=== PATIENT | male | born 1990 | race Caucasian/White ===

== ENCOUNTER → 2019-05-04 17:06 | Outpatient (CLI) | payer OTHER, SELFPAY ==
[2019-05-04 18:08] LABS: Creatine Kinase 91 U/L (55-170)
[2019-05-04 18:21] LABS: Troponin I < 0.012 ng/mL (0.01-0.034)
== END ==
PROVIDERS: PCP Family Medicine; Visit Provider Family Medicine
DX: I48.91 Unspecified atrial fibrillation (principal); R07.9 Chest pain, unspecified
CPT/HCPCS: 36415; 82550; 84484

== ENCOUNTER → 2019-05-21 15:50 | Outpatient (CLI) | payer OTHER, MEDICAID, SELFPAY ==
--- NOTE | 2019-05-21 15:52 | DI.ECHO.S_ITS ---
[place] +---------+ [facility] +---------+ : : [address] : [address] : : : : [id number] : : : : Phone: [phone] Echocardiogram Report + + :Name: TYRESE CAMARILLO Study Date: 05/21/2019 Height: 76 in : :[facility] Weight: 270 lb : : Gender: Male BSA: 2.5 m2 : :: 1990 Age: 28 yrs BP: 128/82 mmHg: :Reason For Study: CHEST PAIN : : Performed By: [facility] Staff : :Referring: UNSPECIFIED : + + Interpretation Summary Borderline concentric left ventricular hypertrophy with ejection fraction 55- 60%. Normal right ventricle and both atria. No valvular abnormality. The aortic root is borderline dilated. Procedure: A two-dimensional transthoracic echocardiogram with color flow and Doppler was performed. The study quality was technically good. There is no prior echocardiogram noted for this patient. The patient was in normal sinus rhythm during the exam. Left Ventricle: The left ventricle is normal in size. There is borderline concentric left ventricular hypertrophy. Left ventricular systolic function is normal. The ejection fraction is estimated to be 55-60%. Left ventricular wall motion is normal. Diastolic parameters suggest probable normal left ventricular diastolic function and normal filling pressures. Right Ventricle: The right ventricle is normal in size and function. Atria: The left atrial size is normal. Right atrial size is normal. The interatrial septum is intact with no evidence for an atrial septal defect. Mitral Valve: The mitral valve is normal in structure and function. There is no mitral regurgitation noted. Aortic Valve: The aortic valve is trileaflet. The aortic valve opens well. No aortic regurgitation is present. Tricuspid Valve: The tricuspid valve is normal in structure and function. There is trace tricuspid regurgitation. Pulmonary artery pressures cannot be estimated because of the lack of a measurable TR jet velocity. Pulmonic Valve: The pulmonic valve is normal in structure and function. There is no pulmonic valvular regurgitation. Great Vessels: The aortic root is borderline dilated. The ascending aorta could not be visualized. The pulmonary artery is normal size. The inferior vena cava was not visualized. Pericardium/ Pleura There is no pericardial effusion. There is no pleural effusion. MMode/2D Measurements & Calculations LVIDd: 5.4 cm LVOT diam: 2.5 cm LVIDs: 3.7 cm Ao root diam: 3.7 cm FS: 32.4 % EPSS: 0.57 cm IVSd: 1.2 cm LVPWd: 1.2 cm LV jeffrey. diameter/BSA (cm/m^2): 2.2 LV sys. diameter/BSA (cm/m^2): 1.5 LA A2 area: 18.1 cm2 RA long axis: 5.2 cm LA A4 area: 18.7 cm2 RA area: 16.4 cm2 LA length (vol): 5.3 cm RA vol: 44.4 ml LA vol: 54.1 ml RA : 17.6 ml/m2 LA vol index: 21.5 ml/m2 TAPSE: 2.0 cm Doppler Measurements & Calculations Ao V2 max: 94.4 cm/sec LVOT Max Sudarshan: 80.9 cm/sec Ao V2 mean: 71.6 cm/sec LV V1 max P.6 mmHg Ao max P.6 mmHg LV V1 VTI: 16.4 cm Ao mean P.2 mmHg NY(I,D): 4.1 cm2 Ao V2 VTI: 20.6 cm NY(V,D): 4.4 cm2 sev ratio: 0.80 NY indexed to BSA (cm^2/m^2): 1.6 MV E max sudarshan: 64.1 cm/sec PA V2 max: 81.0 cm/sec MV A max sudarshan: 43.5 cm/sec PA V2 mean: 58.2 cm/sec MV E/A: 1.5 PA mean P.5 mmHg Med Peak E' Sudarshan: 8.8 cm/sec PA Accel Time: 0.12 sec E/E' med: 7.3 Lat Peak E' Sudarshan: 14.2 cm/sec E/E' lat: 4.5 E/e' average: 5.9 MV dec time: 0.24 sec SV(LVOT): 83.7 ml Electronically signed by: Ross Kraus on Reading Physician:05/21/2019 05:11 PM
== END ==
PROVIDERS: PCP Family Medicine; Visit Provider Family Medicine
DX: R07.9 Chest pain, unspecified (principal); I48.91 Unspecified atrial fibrillation
CPT/HCPCS: C8929; Q9957

== ENCOUNTER 2019-06-12 15:48 | Emergency (ER) | payer OTHER, MEDICAID, SELFPAY ==
[2019-06-12 15:57] VITALS: BP 130/79; PULSE 62; RESP 14; TEMP 36.6; O2SAT 98
--- NOTE | 2019-06-12 17:58 | ED_ITS ---
HPI - Ear Problem <ZACHARY Cabrera - Last Filed: 06/12/19 18:01> General Chief complaint: Ear Stated complaint: pain in right ear Time Seen by Provider: 06/12/19 17:33 Source: patient Mode of arrival: Ambulatory Limitations: no limitations History of Present Illness HPI Narrative: The patient is a 28-year-old male current smoker with history of hypertension who presents with a chief complaint of right ear pain for past 2 days. States he feels a tapping sensation in his ear. He has not taken anything to feel better. He denies any fevers nausea vomiting diarrhea cough. He states he has some nasal congestion and sinus congestion. He denies any drainage from the ear. Related Data Home Medications Medication Instructions Recorded Confirmed aspirin 325 mg tablet 325 mg PO DAILY 05/04/19 06/05/19 Previous Rx's Medication Instructions Recorded metoprolol succinate 100 mg 100 mg PO DAILY #30 tab 05/04/19 tablet,extended release 24 hr Allergies Allergy/AdvReac Type Severity Reaction Status Date / Time No Known Drug Allergies Allergy Verified 06/05/19 10:49 Review of Systems <ZACHARY Cabrera - Last Filed: 06/12/19 18:01> Review of Systems Narrative: GENERAL: This is a well-nourished, well-developed patient, in mild distress. HEAD: Atraumatic. Normocephalic. No temporal or scalp tenderness. EYES: Pupils equal round and reactive. Extraocular motions intact. No scleral icterus. No injection or drainage. ENT: See HPI NECK: Trachea midline. No JVD or lymphadenopathy. Supple, nontender, no meningeal signs. CARDIOVASCULAR: Regular rate and rhythm without murmurs, gallops, or rubs. RESPIRATORY: Clear to auscultation. Breath sounds equal bilaterally. No wheezes, rales, or rhonchi. GASTROINTESTINAL: Abdomen soft, non-tender, nondistended. No hepato- splenomegaly, or palpable masses. No guarding. EXTREMITIES: No clubbing, cyanosis, or edema. No joint tenderness, effusion, or edema noted. BACK: Nontender without deformity or crepitance. No flank tenderness. NEURO: AOx3. SKIN: No rash or erythema. Patient History <ZACHARY Cabrera - Last Filed: 06/12/19 18:01> Medical History Acne (Inactive ~2003) Atrial fibrillation (Acute ~2017) Atypical chest pain (Acute) Chicken pox (Resolved ~1998) Chronic neck and back pain (Acute) Fractures (Resolved ~2002) Low back pain (Acute) Rib pain on left side (Acute) Somatic dysfunction of rib (Acute) Somatic dysfunction of thoracolumbar region (Acute) Vertigo (Chronic ~2017) Surgical History Anesthesia (Resolved) H/O left knee surgery (Acute) History of torn meniscus of left knee (Resolved ~12/2010) Family History Father No problems noted. Mother No problems noted. Grandmother Stroke Grandfather Cancer Social History Smoking Status: Current every day smoker Smoking Status: Current every day smoker Exam <ZACHARY Cabrera - Last Filed: 06/12/19 18:01> Narrative Exam Narrative: GENERAL: This is a well-nourished, well-developed patient, in no acute distress HEAD: Atraumatic. Normocephalic. No temporal or scalp tenderness. EYES: Pupils equal round and reactive. Extraocular motions intact. No scleral icterus. No injection or drainage. ENT: Nose without bleeding, purulent drainage or septal hematoma. Throat without erythema, tonsillar hypertrophy or exudate. Uvula midline. Airway patent. Bilateral TMs pearly casey. NECK: Trachea midline. No JVD or lymphadenopathy. Supple, nontender, no meningeal signs. CARDIOVASCULAR: Regular rate and rhythm RESPIRATORY: Clear to auscultation. Breath sounds equal bilaterally. No wheezes, rales, or rhonchi. No cough. No increased respiratory effort. No accessory muscle use. EXTREMITIES: No clubbing, cyanosis, or edema. No joint tenderness, effusion, or edema noted. BACK: Nontender without deformity or crepitance. No flank tenderness. NEURO: AOx3. SKIN: No rash or erythema. Initial Vital Signs Initial Vital Signs: Vital Signs Temperature 97.8 F 06/12/19 15:57 Pulse Rate 62 12/24/19 15:57 Respiratory Rate 14 06/12/19 15:57 Blood Pressure 130/79 06/12/19 15:57 Pulse Oximetry 98 06/12/19 15:57 <Karin Harper MD - Last Filed: 06/12/19 18:32> Initial Vital Signs Initial Vital Signs: Vital Signs Temperature 97.8 F 06/12/19 15:57 Pulse Rate 62 06/12/19 15:57 Respiratory Rate 14 06/12/19 15:57 Blood Pressure 130/79 06/12/19 15:57 Pulse Oximetry 98 06/12/19 15:57 Course <ZACHARY Cabrera - Last Filed: 06/12/19 18:01> Vital Signs Vital signs: Vital Signs - 8 hr 06/12/19 15:57 Temperature 97.8 F Pulse Rate 62 Respiratory Rate 14 Blood Pressure 130/79 Pulse Oximetry 98 <Karin Harper MD - Last Filed: 06/12/19 18:32> Vital Signs Vital signs: Vital Signs - 8 hr 06/12/19 15:57 Temperature 97.8 F Pulse Rate 62 Respiratory Rate 14 Blood Pressure 130/79 Pulse Oximetry 98 Medical Decision Making <ZACHARY Cabrera - Last Filed: 06/12/19 18:01> MDM Narrative Medical decision making narrative: The patient is a 28-year-old male presents with a chief complaint of 2 days of right ear pain. Exam is overall benign. Encouraged cven-ams-guvondk measures such as Coricidin HBP, Flonase, NeilMed sinus rinse etcetera. No signs of infection exam. Encourage PCP follow-up the next few days and coming back to emergency department any acute concerns. Patient has no questions or concerns upon discharge and states understanding of return precautions as well as follow-up care. Discharge Plan Departure Patient Disposition: Home Clinical Impression: Earache Discharge Date/Time: 06/12/19 18:00 Instructions: DI for Ear Pain-Adult Activity Restrictions/Additional Instructions: I do not see any sign of bug or insect in your ear I suggest NeilMed sinus rinse or Neti pot, Flonase and Coricidin HBP to decrease your congestion Please follow-up with primary care provider in the next few days Please come back to the emergency department for any acute concerns such as inability keep down fluids, abdominal pain with fever etc. Prescriptions: No Action aspirin 325 mg tablet 325 mg PO DAILY RF: 0 metoprolol succinate 100 mg tablet extended release 24 hr 100 mg PO DAILY Qty: 30 RF: 0 Referrals: Gregory Case DO [Primary Care Provider] -
== END 2019-06-12 18:00 | disposition home or self-care (01) ==
PROVIDERS: Emergency Provider Nurse Practitioner Family; PCP Family Medicine
DX: H92.01 Otalgia, right ear (principal)
CPT/HCPCS: 99281

== ENCOUNTER → 2019-06-26 13:45 | Outpatient (CLI) | payer OTHER, MEDICAID, SELFPAY ==
--- NOTE | 2019-06-26 15:01 | PM.TREADMILL ---
Cardiac Stress Test Report Referral & Results Date Patient Seen: 06/26/19 Requesting provider: Gregory Case Indication: Atrial fibrillation Rest ECG: Unremarkable, sinus rhythm Procedure Note: Today following both written and verbal informed consent, the patient was exercised according to a standard [place] protocol. The patient exercised for a total of 9 minutes 59 seconds achieving a maximum heart rate of 183. Patient's maximum systolic blood pressure was 190. This was an estimated 12.8 MET's. There are no ST-T segment changes Normal heart rate and blood pressure response to exercise Functional aerobic impairment rated 20% on the sedentary scale Rare PAC in recovery only noted Impression: No evidence of ischemia. Average to somewhat less than average exercise capacity. Please note: Actual ECG tracings can be found in the PACS system.
== END ==
PROVIDERS: PCP Family Medicine; Visit Provider Family Medicine
DX: I48.91 Unspecified atrial fibrillation (principal); R07.89 Other chest pain
CPT/HCPCS: 93016; 93017; 93018

== ENCOUNTER → 2019-07-05 11:39 | Outpatient (CLI) | payer OTHER, MEDICAID, SELFPAY ==
--- NOTE | 2019-07-05 11:41 | DI.RAD.S_ITS ---
PROCEDURE: XR CHEST 2V INDICATIONS: atypical chest pain, negative cardiac workup TECHNIQUE: 2 views of the chest were acquired. COMPARISON: [facility], , XR CXR 2 VIEW, 08/02/2005, 3:26. FINDINGS: Surgical changes and devices: None. Lungs and pleura: Lungs are clear. No pleural effusions or pneumothorax. Mediastinum: Mediastinal contours are normal. Heart size is normal. Bones and chest wall: No suspicious bony abnormalities. Soft tissues appear unremarkable. IMPRESSION: No acute cardiopulmonary disease. Dictated by: Marshal Traylor M.D. on 07/05/2019 at 13:59 Approved by: Marshal Traylor M.D. on 07/05/2019 at 14:05
== END ==
PROVIDERS: PCP Family Medicine; Visit Provider Family Medicine
DX: R07.89 Other chest pain (principal)
CPT/HCPCS: 71046

== ENCOUNTER 2019-12-09 10:56 | Emergency (ER) | payer OTHER, SELFPAY ==
[2019-12-09 11:05] VITALS: BP 169/81; PULSE 66; RESP 16; TEMP 36.7; O2SAT 100; BMI 36.5
[2019-12-09 11:11] VITALS: PULSE 60
--- NOTE | 2019-12-09 11:18 | ED_ITS ---
HPI - Extremity Problem [facility] - Last Filed: 12/09/19 19:16> General Chief complaint: Extremity Problem,Nontraumatic Stated complaint: possible pulled calf muscle Tuesday, stabbing pain Time Seen by Provider: 12/09/19 11:03 Source: patient Mode of arrival: Ambulatory Limitations: no limitations History of Present Illness HPI Narrative: This is a 29 year male, smoker, presents to ED with chief complain of right calf tight/cramping pain since Tuesday morning when he woke up. During throughout the day the pain had improved but last night he woke up twice with right calf cramping pain. Patient denies increasing activity or had increased working out. Patient denies taking steroids. Patient has been hydrating well but pain is not improving. Patient has history of right arm DVT in the past when he was hospitalized. Patient denies recent prolonged travel or bed rest. Patient states his grandmother had stroke. Patient has been taking Tylenol at home and had taken aspirin this morning since ran out of Tylenol. Patient denies fever, chills, nausea or vomiting. Patient reports intact sensation. Related Data Home Medications Medication Instructions Recorded Confirmed aspirin 325 mg tablet 325 mg PO DAILY 05/04/19 07/18/19 Previous Rx's Medication Instructions Recorded metoprolol succinate 100 mg 100 mg PO DAILY #30 tab 06/21/19 tablet,extended release 24 hr Allergies Allergy/AdvReac Type Severity Reaction Status Date / Time No Known Drug Allergies Allergy Verified 07/18/19 10:46 Review of Systems <[facility] - Last Filed: 12/09/19 19:16> Review of Systems Narrative: General: Denies fever, chills, fatigue, malaise, sweats. HEENT: Denies sinus pain, ear pain, sore throat, difficulty swallowing, dizziness. Respiratory: Denies dyspnea, cough, wheezing, hemoptysis, sputum. Cardiovascular: Denies chest pain, palpitations, orthopnea, edema. Gastrointestinal: Denies nausea, vomiting, abdominal pain, diarrhea, constipation, melena. : Denies dysuria, frequency, incontinence, hematuria, urinary retention. Musculoskeletal: See HPI Skin: Denies rash, skin lesions, or other. Neurologic: Denies weakness, headache, numbness, change in speech, confusion, seizures, incoordination. Psychiatric: No concerning psychosocial issues. 12-point review of systems is negative except for those stated above. Patient History <BRAXTON Fuentes - Last Filed: 12/09/19 19:16> Medical History Acne (Inactive ~2003) Atrial fibrillation (Acute ~2018) Atypical chest pain (Acute) Chicken pox (Resolved ~1998) Chronic neck and back pain (Acute) Eustachian tube dysfunction (Acute) Fractures (Resolved ~2002) Low back pain (Acute) Other ear problems (Acute) Penile pain (Acute) Rib pain on left side (Acute) Somatic dysfunction of rib (Acute) Somatic dysfunction of thoracolumbar region (Acute) Tobacco abuse counseling (Acute) Vertigo (Chronic ~2017) Surgical History Anesthesia (Resolved) H/O left knee surgery (Acute) History of torn meniscus of left knee (Resolved ~12/2010) Family History Father No problems noted. Mother No problems noted. Grandmother Stroke Grandfather Cancer Social History Smoking Status: Former smoker Smoking Status: Former smoker alcohol intake frequency: 0-2 drinks per day Substance Use Type: does not use Exam <BRAXTON Fuentes - Last Filed: 12/09/19 19:16> Narrative Exam Narrative: General appearance: well developed, well nourished, in no acute distress. Head: normocephalic, atraumatic, no scalp lesions, non-tender. ENT: Hearing grossly intact. [place]way patent. Neck/Thyroid: neck supple, full range of motion, no visible masses or meningeal signs. No JVD, non-tender without lymphadenopathy. Skin: no suspicious rashes, lesions over visible areas. Warm and dry and appropriate color for ethnicity. Heart: no clubbing, no cyanosis, no edema. Lungs: Breathing even and unlabored. No stridor. No accessory muscles used. Able to speak in full sentences. Chest: normal shape and expansion. Abdomen: non-obese, non-distended. Neurologic: alert and oriented. Cognitive exam, CLIENT SERVICE AND CONSULTING MANAGER and PNS grossly intact on informal exam. Psych: good eye contact, normal affect. Initial Vital Signs Initial Vital Signs: Vital Signs Temperature 98.1 F 12/09/19 11:05 Pulse Rate 66 12/09/19 11:05 Respiratory Rate 16 12/09/19 11:05 Blood Pressure 169/81 H 12/09/19 11:05 Pulse Oximetry 100 12/09/19 11:05 Extrem Right lower extremity: knee Details: normal to inspection; no tenderness and no swelling, lower leg (calf pain and TTP. Mild tightness to palpate) Details: normal to inspection and tenderness Location: of the posterior calf; no erythema, no abrasions, no ecchymosis, no deformity and no unusual warmth, ankle Details: normal to inspection; no tenderness and no swelling and foot Details: normal capillary refill, toes with normal ROM, no edema, vascular exam Details: dorsalis pedis pulse present, tendon exam Details: active flexion normal and active extension normal and motor-sensory exam Details: light-touch normal; no tenderness and no unusual warmth <Alfie Berg MD - Last Filed: 12/10/19 08:03> Initial Vital Signs Initial Vital Signs: Vital Signs Temperature 98.1 F 12/09/19 11:05 Pulse Rate 66 12/09/19 11:05 Respiratory Rate 16 12/09/19 11:05 Blood Pressure 169/81 H 12/09/19 11:05 Pulse Oximetry 100 12/09/19 11:05 Scores <BRAXTON Fuentes - Last Filed: 12/09/19 19:16> GCS Remy coma scale eye opening: Spontaneous Danielson coma scale verbal response: Orientated Remy coma scale motor response: Obey commands Danielson coma scale total score: 15 Wells' Criteria for DVT Active Cancer (Treatment within 6 months): No Bedridden recently >3 days or major surgery within 4 weeks: No Calf Swelling >3cm compared to other leg: No Collateral (nonvericose) superficial veins present: No Entire leg swollen: No Localized tenderness along the deep vein system: Yes Pitting edema, confined to symtomatic leg: No Paralysis, paresis, or recent plaster immobilization of ext: No Previously documented DVT: Yes Alternative dx to DVT as likely or more likely: Yes Wells' criteria for DVT: 0 Course <BRAXTON Fuentes - Last Filed: 12/09/19 19:16> Orders Ordered: Discontinued Medications Acetaminophen (Tylenol) 975 mg PO NOW ONE Stop: 12/09/19 11:19 Last Admin: 12/09/19 12:30 Dose: 975 mg Documented by: GABI Vital Signs Vital signs: Vital Signs - 8 hr 12/09/19 13:00 Pulse Rate 67 Respiratory Rate 16 Blood Pressure [Left Arm] 142/89 H Pulse Oximetry 95 <Alfie Berg MD - Last Filed: 12/10/19 08:03> Orders Ordered: Discontinued Medications Acetaminophen (Tylenol) 975 mg PO NOW ONE Stop: 12/09/19 11: Last Admin: 12/09/19 12:30 Dose: 975 mg Documented by: GABI Vital Signs Vital signs: Vital Signs - 8 hr 12/09/19 13:00 Pulse Rate 67 Respiratory Rate 16 Blood Pressure [Left Arm] 142/89 H Pulse Oximetry 95 MDM - Extremity (Nontraumatic) <BRAXTON Fuentes - Last Filed: 12/09/19 19:16> Differential Diagnosis Differential diagnosis: Likely cellulitis, deep vein thrombosis of lower extremity and other (Muscle strain) Medical Records Attestation: I reviewed the patient's medical records. Lab Data Attestation: I reviewed the patient's lab results. Result diagrams: 12/09/19 11:40 Labs: Lab Results 12/09/19 12/09/19 Range/Units 11:40 11:40 D-Dimer 848 H (<230) ng/mL Sodium 137 (137-145) mmol/L Potassium 4.4 (3.4-5.1) mmol/L Chloride 105 (98-107) mmol/L Carbon Dioxide 23 (22-32) mmol/L BUN 13 (9-20) mg/dL Creatinine 0.84 (0.66-1.25) mg/dL Estimated GFR > 60.0 (>60) mL/min BUN/Creatinine Ratio 15.5 (6-22) Glucose 94 (70-100) mg/dL Calcium 9.6 (8.4-10.2) mg/dL Magnesium 2.0 (1.6-2.3) mg/dL Total Creatine Kinase 137 (55-170) U/L Imaging Data US - DVT: Radiologist's Impression: [address] [address] Ultrasound Report Signed Patient: Regis Wolf [facility]#: [id number] : 1990Acct:[id number] Age/Sex: 29 / MDate of Service: 12/09/19 Loc: ED Accession Number: [id number] Procedure: US periph venous low extrem rt Ordering Provider: Robin Mayers PROCEDURE: US PERIPH VENOUS LOW EXTREM RT INDICATIONS: right leg pain, hx of DVT in upper extremity, elevated D dim TECHNIQUE: Real-time imaging, as well as color and pulse Doppler interrogation, were performed of the lower extremity deep veins from the inguinal ligament to the popliteal fossa. COMPARISON: None. FINDINGS: The common femoral, femoral and popliteal veins are normally compressible, and free of intraluminal thrombus. Color and pulse Doppler demonstrate normal phasic intraluminal flow. There is normal augmentation response to distal compression maneuver. IMPRESSION: No evidence of deep vein thrombosis of the right lower extremity. Dictated by: Pablito Trevino M.D. on 12/09/2019 at 11:58 Approved by: Pablito Trevino M.D. on 12/09/2019 at 12:00 [facility] Narrative Medical decision making narrative: 29-year-old male who presents to ED with 2 day duration of right calf cramping pain. Patient has history of right upper arm DVT when he was hospitalized with IV insertion. Electrolytes were unremarkable. Normal CPK. D-dimer was elevated as 848. US of right lower extremity for DVT was negative findings. Physical exam with mild tenderness to palpate in right calf. Patient advised to use [id number] Tylenol and or Motrin and to use warm/cool pack as needed for possible muscle strain from stretching during sleep and return precautions were discussed. Patient verbalized understanding in agreement with the treatment plan. <Alfie Berg MD - Last Filed: 12/10/19 08:03> Lab Data Labs: Lab Results 12/09/19 12/09/19 Range/Units 11:40 11:40 D-Dimer 848 H (<230) ng/mL Sodium 137 (137-145) mmol/L Potassium 4.4 (3.4-5.1) mmol/L Chloride 105 (98-107) mmol/L Carbon Dioxide 23 (22-32) mmol/L BUN 13 (9-20) mg/dL Creatinine 0.84 (0.66-1.25) mg/dL Estimated GFR > 60.0 (>60) mL/min BUN/Creatinine Ratio 15.5 (6-22) Glucose 94 (70-100) mg/dL Calcium 9.6 (8.4-10.2) mg/dL Magnesium 2.0 (1.6-2.3) mg/dL Total Creatine Kinase 137 (55-170) U/L Discharge Plan Departure Patient Disposition: Home Clinical Impression: Pain of right calf Discharge Date/Time: 12/09/19 13:59 Instructions: DI for Calf Muscle Strain Activity Restrictions/Additional Instructions: You have been diagnosed with [right calf strain. Electrolytes and CK were unremarkable. There was slight elevation in D-dimer so ultrasound test was done on right calf which shows no DVT.]. What to do: *Take your medications as directed. Please take Tylenol and or Motrin as needed for discomfort. Tylenol 650-1000 mg up to 3 to 4 times a day. Ibuprofen 400- 600 mg up to 3 times a day as needed for pain with food. You can use cool/warm pack on affected site for discomfort. After acute pain improves, you can stretch the muscle. He can also try massage to relaxes the muscle. *Follow up with your primary care provider in 2-3 days, call for an appointment. Let them know you were seen in the ED and that we asked you to be seen in follow up. *Return to ED if you have any new, worsening, or concerning symptoms, such as [chest pain, breathing difficulty, unable to tolerate fluids, fever, worsening pain/warmth/redness, weakness, decreased sensation or any acute concerns]. Prescriptions: No Action metoprolol succinate 100 mg tablet extended release 24 hr 100 mg PO DAILY Qty: 30 RF: 3 aspirin 325 mg tablet 325 mg PO DAILY RF: 0 Referrals: Gregory Case DO [Primary Care Provider] -
[2019-12-09 12:01] LABS: D Dimer 848 ng/mL (<230)
[2019-12-09 12:13] LABS: BUN Creatinine Ratio 15.5 (6-22); Blood Urea Nitrogen 13 mg/dL (9-20); Calcium 9.6 mg/dL (8.4-10.2); Carbon Dioxide 23 mmol/L (22-32); Chloride 105 mmol/L (98-107); Creatine Kinase 137 U/L (55-170); Estimated Glomerular Filt Rate > 60.0 mL/min (>60); Glucose 94 mg/dL (70-100); HEMOLYSIS < 15 (0-50); Potassium 4.4 mmol/L (3.4-5.1); Sodium 137 mmol/L (137-145)
--- NOTE | 2019-12-09 12:14 | DI.US.S_ITS ---
PROCEDURE: US PERIPH VENOUS LOW EXTREM RT INDICATIONS: right leg pain, hx of DVT in upper extremity, elevated D dim TECHNIQUE: Real-time imaging, as well as color and pulse Doppler interrogation, were performed of the lower extremity deep veins from the inguinal ligament to the popliteal fossa. COMPARISON: None. FINDINGS: The common femoral, femoral and popliteal veins are normally compressible, and free of intraluminal thrombus. Color and pulse Doppler demonstrate normal phasic intraluminal flow. There is normal augmentation response to distal compression maneuver. IMPRESSION: No evidence of deep vein thrombosis of the right lower extremity. Dictated by: Pablito Trevino M.D. on 12/09/2019 at 11:58 Approved by: Pablito Trevino M.D. on 12/09/2019 at 12:00
[2019-12-09] MEDS: ACETAMINOPHEN 325 MG TABLET 975 MG PO (12:30)
[2019-12-09 13:00] VITALS: BP 142/89; PULSE 67; RESP 16; O2SAT 95
== END 2019-12-09 13:59 | disposition home or self-care (01) ==
PROVIDERS: Emergency Provider Nurse Practitioner Family; PCP Family Medicine
DX: M79.661 Pain in right lower leg (principal); Z86.718 Personal history of other venous thrombosis and embolism
CPT/HCPCS: 36415; 80048; 82550; 83735; 85379; 93971; 99283; 99284

== ENCOUNTER 2019-12-23 03:40 | Emergency (ER) | payer BC, OTHER, MEDICAID, SELFPAY ==
[2019-12-23] VITALS (15 sets, daily range): BP systolic 132–147; BP diastolic 80–97; PULSE 88–115; RESP 20–33; O2SAT 93–95; BMI 36.7
--- NOTE | 2019-12-23 03:44 | DI.RAD.S_ITS ---
PROCEDURE: XR CHEST 1V INDICATIONS: chest pain TECHNIQUE: One view of the chest was acquired. COMPARISON: 07/05/19. FINDINGS: Surgical changes and devices: None. Lungs and pleura: Lungs are clear. No pleural effusions or pneumothorax. Mediastinum: Mediastinal contours appear normal. Heart size is normal. Bones and chest wall: No suspicious bony lesions. Overlying soft tissues appear unremarkable. IMPRESSION: No evidence acute pulmonary process. Dictated by: Nico Cardoza M.D. on 12/23/2019 at 7:24 Approved by: Nico Cardoza M.D. on 12/23/2019 at 7:24
--- NOTE | 2019-12-23 03:57 | ED.CHESTPAIN ---
HPI - Chest Pain General Chief Complaint: Chest Pain Stated Complaint: chest pain Time Seen by Provider: 12/23/19 03:43 Source: patient Mode of arrival: Wheelchair Limitations: no limitations History of Present Illness HPI narrative: Patient is a 29-year-old male here for evaluation of chest discomfort, shortness of breath and lightheadedness. Patient states that the symptoms started yesterday afternoon when he was outside working in his garage. He stated that he got to the point where he needed to sit down. He states the symptoms have continued since then. Have not changed. Describes the chest pain as a sharp pain on the left side. Worse with taking a deep breath. He does have a history of atrial fibrillation. Was on metoprolol for short period of time however has stop this medication per recommendation from his audio/video technician. Has not tried anything for his current symptoms prior to arrival. He states the lightheadedness occurs when he stands up and walks around. He states he feels like his heart is beating fast. Related Data Home Medications Medication Instructions Recorded Confirmed aspirin 325 mg tablet 325 mg PO DAILY 05/04/19 12/11/19 Previous Rx's Medication Instructions Recorded diclofenac sodium 3 % topical gel 1 applictn TOP BID #100 gram 12/11/19 ibuprofen 800 mg tablet 800 mg PO Q8H PRN #90 tab 12/11/19 lidocaine 5 % topical patch 1 patch TOP DAILY #15 each 12/11/19 Allergies Allergy/AdvReac Type Severity Reaction Status Date / Time No Known Drug Allergies Allergy Verified 12/11/19 16:29 Review of Systems Constitutional Constitutional: Denies fever(s), Denies headache(s) and Denies weakness ENT Ears, Nose, Mouth, and Throat: Reports dizziness, Denies headache(s) and Reports disequilibrium Cardiovascular Cardiovascular: Reports chest pain, Denies syncope, Reports rapid heart rate, Denies dyspnea, Reports dyspnea on exertion and Denies orthopnea Respiratory Respiratory: Denies cough, Denies dyspnea and Reports dyspnea on exertion Gastrointestinal Gastrointestinal: Denies abdominal pain, Denies nausea and Denies vomiting Musculoskeletal Musculoskeletal: Denies myalgias Integumentary/Breasts Skin/Breast: Denies lesions and Denies rash Neurologic Neurologic: Denies abnormal movements, Denies behavioral changes, Reports dizziness, Denies syncope, Denies headache(s), Reports disequilibrium and Denies weakness Psychiatric Psychiatric: Denies behavioral changes Hematologic/Lymphatic Hematologic/Lymphatic: Denies easy bleeding and Denies easy bruising Allergic/Immunologic Allergic/Immunologic: Denies urticaria Patient History Medical History Acne (Inactive ~2003) Atrial fibrillation (Acute ~2018) Atypical chest pain (Acute) Chicken pox (Resolved ~1998) Chronic neck and back pain (Acute) Eustachian tube dysfunction (Acute) Fractures (Resolved ~2002) Low back pain (Acute) Other ear problems (Acute) Penile pain (Acute) Rib pain on left side (Acute) Somatic dysfunction of rib (Acute) Somatic dysfunction of thoracolumbar region (Acute) Tobacco abuse counseling (Acute) Vertigo (Chronic ~2016) Surgical History Anesthesia (Resolved) H/O left knee surgery (Acute) History of torn meniscus of left knee (Resolved ~12/2010) Family History Father No problems noted. Mother No problems noted. Grandmother Stroke Grandfather Cancer Social History Smoking Status: Former smoker Smoking Status: Former smoker alcohol intake frequency: 0-2 drinks per day Substance Use Type: does not use Exam Initial Vital Signs Initial Vital Signs: Vital Signs Blood Pressure 138/91 H 12/23/19 03:49 Const General: cooperative, anxious and diaphoretic HENMT Head: normal to inspection and normocephalic Eyes General: appearance normal, both eyes and all related structures Resp Effort & Inspection: normal respiratory effort Auscultation: clear to auscultation bilaterally Cardio Rate: regular rate Rhythm: regular rhythm GI Inspection: non-distended Palpation: soft Skin Lesions: no lesions Rashes: no rashes Neuro General: patient alert and patient awake Cognition: normal cognition Speech: speech normal Extrem General: normal to inspection, capillary refill normal and No edema Psych Appearance: grossly normal and well kempt Scores GCS Remy coma scale eye opening: Spontaneous Remy coma scale verbal response: Orientated Flomot coma scale motor response: Obey commands Remy coma scale total score: 15 PERC Score Age greater than or equal to 50 years: No Heart rate greater than or equal to 100 bpm: Yes Room Air O2 Sat less than 95%: No Unilateral leg swelling: No Recent trauma or surgery: No Hemoptysis: No Prior PE or DVT: No Hormone Use: No Total PERC Score: 1 Course Orders Ordered: ED Orders 12/23/19 03:44 XR chest 1V Stat 12/23/19 03:46 EKG-12 Lead Stat 12/23/19 03:49 Basic Metabolic Panel Stat Complete Blood Count AUTO DIFF Stat D Dimer Stat NT-proBNP (BNP-Adult 18+) Stat Partial Thromboplastin Time Stat Prothrombin Time INR Stat Thyroid Stimulating Hormone Stat Troponin I Stat 12/23/19 04:41 CT angio chest PE protocol Stat 12/23/19 05:50 C-Reactive Protein Quant Stat Erythrocyte Sedimentation Rate Stat Factor V Leiden Mutation Stat Heparin Sodium/Dextrose (Heparin Drip) 25,000 unit in 500 mls @ 50.621 mls/hr IV CONT GIACOMO; Protocol Last Admin: 12/23/19 05:35 Dose: 18 units/kg/hr, 50.621 mls/hr Documented by: CHINTAN Discontinued Medications Aspirin (Aspirin Chew) 324 mg PO NOW ONE Stop: 12/23/19 04:48 Last Admin: 12/23/19 04:54 Dose: 324 mg Documented by: CHINTAN Heparin Sodium (Porcine) (Heparin) 7,500 unit IV NOW ONE Stop: 12/23/19 05:06 Last Admin: 12/23/19 05:35 Dose: 7,500 unit Documented by: CHINTAN Sodium Chloride (Normal Saline 0.9%) 1,000 mls @ 1,000 mls/hr IV BOLUS ONE Stop: 12/23/19 05:26 Last Admin: 12/23/19 04:31 Dose: 1,000 mls/hr Documented by: CHINTAN Lorazepam (Ativan) 1 mg IV NOW ONE Stop: 12/23/19 03:58 Last Admin: 12/23/19 04:03 Dose: 1 mg Documented by: CHINTAN Vital Signs Vital signs: Vital Signs - 8 hr 12/23/19 03:49 12/23/19 03:50 12/23/19 03:54 Pulse Rate 103 H 100 H Respiratory Rate 27 H Blood Pressure 138/91 H 140/93 H Pulse Oximetry 95 95 12/23/19 04:00 12/23/19 04:03 12/23/19 04:15 Pulse Rate 101 H 98 H 101 H Respiratory Rate 26 H 28 H 33 H Blood Pressure 132/89 146/97 H Pulse Oximetry 95 94 94 12/23/19 04:30 12/23/19 04:45 Pulse Rate 115 H 101 H Respiratory Rate 23 24 Blood Pressure 147/94 H 135/80 Pulse Oximetry 94 95 MDM - Chest Pain Lab Data Attestation: I reviewed the patient's lab results. Result diagrams: 12/23/19 03:49 12/23/19 03:49 Labs: Lab Results 12/23/19 12/23/19 12/23/19 Range/Units 03:49 03:49 03:49 WBC 13.5 H (4.5-11.0) X10^3/uL RBC 6.37 H (4.5-5.9) X10^6/uL Hgb 18.3 H (13.5-17.5) g/dL Hct 53.6 H (41-53) % MCV 84.1 (80-100) fL MCH 28.7 (26-34) PG MCHC 34.1 (30-36) % RDW 13.5 (11.6-14.8) % Plt Count 215 (150-400) X10^3/uL Neut % (Auto) 63.7 (50-75) % Lymph % (Auto) 23.4 L (25-40) % [place] % (Auto) 10.6 (3-14) % Eos % (Auto) 1.8 L (2-4) % Baso % (Auto) 0.5 (0-2) % Neut # (Auto) 8600 H (8139-2381) /uL Lymph # (Auto) 3200 (3486-9893) /uL [place] # (Auto) 1400 H (0-900) /uL Eos # (Auto) 200 (0-450) /uL Baso # (Auto) 100 (0-100) /uL ESR (0-15) MM/HR PT (10.1-12.7) SECONDS INR (0.9-1.3) APTT (26.4-36.2) SECONDS D-Dimer (<230) ng/mL Sodium 138 (137-145) mmol/L Potassium 4.4 (3.4-5.1) mmol/L Chloride 104 (98-107) mmol/L Carbon Dioxide 24 (22-32) mmol/L BUN 14 (9-20) mg/dL Creatinine 1.01 (0.66-1.25) mg/dL Estimated GFR > 60.0 (>60) mL/min BUN/Creatinine Ratio 13.9 (6-22) Glucose 106 H (70-100) mg/dL Calcium 10.2 (8.4-10.2) mg/dL Troponin I (0.01-0.034) ng/mL C-Reactive Protein (<1.0) mg/dL NT-Pro-B Natriuret Pep (<125) pg/mL TSH 1.62 (0.47-4.68) uIU/mL 12/23/19 12/23/19 12/23/19 Range/Units 03:49 03:49 03:49 WBC (4.5-11.0) X10^3/uL RBC (4.5-5.9) X10^6/uL Hgb (13.5-17.5) g/dL Hct (41-53) % MCV (80-100) fL MCH (26-34) PG MCHC (30-36) % RDW (11.6-14.8) % Plt Count (150-400) X10^3/uL Neut % (Auto) (50-75) % Lymph % (Auto) (25-40) % [place] % (Auto) (3-14) % Eos % (Auto) (2-4) % Baso % (Auto) (0-2) % Neut # (Auto) (9326-4031) /uL Lymph # (Auto) (0795-6519) /uL [place] # (Auto) (0-900) /uL Eos # (Auto) (0-450) /uL Baso # (Auto) (0-100) /uL ESR (0-15) MM/HR PT (10.1-12.7) SECONDS INR (0.9-1.3) APTT (26.4-36.2) SECONDS D-Dimer 5705 H (<230) ng/mL Sodium (137-145) mmol/L Potassium (3.4-5.1) mmol/L Chloride (98-107) mmol/L Carbon Dioxide (22-32) mmol/L BUN (9-20) mg/dL Creatinine (0.66-1.25) mg/dL Estimated GFR (>60) mL/min BUN/Creatinine Ratio (6-22) Glucose (70-100) mg/dL Calcium (8.4-10.2) mg/dL Troponin I 0.185 H* (0.01-0.034) ng/mL C-Reactive Protein (<1.0) mg/dL NT-Pro-B Natriuret Pep 322 H (<125) pg/mL TSH (0.47-4.68) uIU/mL 12/23/19 12/23/19 12/23/19 Range/Units 03:49 05:50 05:50 WBC (4.5-11.0) X10^3/uL RBC (4.5-5.9) X10^6/uL Hgb (13.5-17.5) g/dL Hct (41-53) % MCV (80-100) fL MCH (26-34) PG MCHC (30-36) % RDW (11.6-14.8) % Plt Count (150-400) X10^3/uL Neut % (Auto) (50-75) % Lymph % (Auto) (25-40) % [place] % (Auto) (3-14) % Eos % (Auto) (2-4) % Baso % (Auto) (0-2) % Neut # (Auto) (5745-2195) /uL Lymph # (Auto) (9757-0515) /uL [place] # (Auto) (0-900) /uL Eos # (Auto) (0-450) /uL Baso # (Auto) (0-100) /uL ESR 3 (0-15) MM/HR PT 13.3 H (10.1-12.7) SECONDS INR 1.2 (0.9-1.3) APTT 36 (26.4-36.2) SECONDS D-Dimer (<230) ng/mL Sodium (137-145) mmol/L Potassium (3.4-5.1) mmol/L Chloride (98-107) mmol/L Carbon Dioxide (22-32) mmol/L BUN (9-20) mg/dL Creatinine (0.66-1.25) mg/dL Estimated GFR (>60) mL/min BUN/Creatinine Ratio (6-22) Glucose (70-100) mg/dL Calcium (8.4-10.2) mg/dL Troponin I (0.01-0.034) ng/mL C-Reactive Protein 2.3 H (<1.0) mg/dL NT-Pro-B Natriuret Pep (<125) pg/mL TSH (0.47-4.68) uIU/mL Imaging Data Chest x-ray: Attestation: I personally reviewed and interpreted this imaging study as follows: My Impression: No acute pathology CT scan - chest: Attestation: I personally reviewed and interpreted this imaging study as follows: My Impression: Bilateral pulmonary embolus Radiologist's Impression: Bilateral upper lobe pulmonary emboli with occlusive thrombus in the left lower lobe. ECG Data Attestation: I personally reviewed and interpreted this ECG as follows: Prior ECG tracings: not available for review Interpretation: Sinus tachycardia Ventricular rate 103 Normal axis Normal QRS Normal QTC No ST T wave changes MDM Narrative Medical decision making narrative: Patient hemodynamically stable. Has never been hypotensive. Slightly tachycardic. Never hypoxic. EKG has nonspecific changes. Chest x-ray is unremarkable. Does have an elevated D-dimer. CT scan of the chest shows bilateral pulmonary embolisms. Elevated troponins slightly elevated BNP as concern for right heart strain. Patient started on heparin. Discussed the case with pulmonology at [facility] he stated that given his hemodynamic status he did not need ICU care. I then discussed the case with Dr. Wright with cardiology to stated that he would be happy to evaluate the patient upon transfer. He did recommend other lab tests performed before starting heparin. These were ordered however results were not available at time of transfer. Had then discussed the case with Dr. Howard hospitalist at [facility] who accepts the patient in transfer. Patient is stable for transfer. Patient expressed understanding and agreement. Critical Care Time Critical Care Time Critical Care Time: Yes Total Critical Care Time: 35 Attestation: The high probability of a clinically significant, sudden or life threatening deterioration of the cardiovascular, respiratory system(s) required my full and direct attention, intervention and personal management. The aggregate critical care time was 35 minutes. This time is in addition to time spent performing reported procedures but includes the following: [] Data Review and interpretation [] Patient assessment and monitoring of vital signs [] Documentation [] Medication orders and management Discharge Plan Departure Patient Disposition: [facility] Clinical Impression: Pulmonary embolism Qualifiers: Pulmonary embolism type: unspecified Chronicity: acute Acute cor pulmonale presence: unspecified Qualified Code(s): I26.99 - Other pulmonary embolism without acute cor pulmonale Prescriptions: No Action aspirin 325 mg tablet 325 mg PO DAILY RF: 0 diclofenac sodium 3 % gel 1 applictn TOP BID Qty: 100 RF: 1 ibuprofen 800 mg tablet 800 mg PO Q8H PRN (Reason: pain) Qty: 90 RF: 0 lidocaine 5 % adhesive patch,medicated 1 patch TOP DAILY Qty: 15 RF: 0 Referrals: Gregory Case DO [Primary Care Provider] -
[2019-12-23] MEDS: LORazepam 2 MG/ML INJ 1 MG IV (04:03)
[2019-12-23 04:11] LABS: Add Manual Diff / Slide Review NO; BUN Creatinine Ratio 13.9 (6-22); Basophils Absolute Auto 100 /uL (0-100); Basophils Percent Auto 0.5 % (0-2); Blood Urea Nitrogen 14 mg/dL (9-20); Calcium 10.2 mg/dL (8.4-10.2); Carbon Dioxide 24 mmol/L (22-32); Chloride 104 mmol/L (98-107); Eosinophils Absolute Auto 200 /uL (0-450); Eosinophils Percent Auto 1.8 % (2-4); Estimated Glomerular Filt Rate > 60.0 mL/min (>60); Glucose 106 mg/dL (70-100); HEMOLYSIS 35 (0-50); Hematocrit 53.6 % (41-53); Hemoglobin 18.3 g/dL (13.5-17.5); Lymphocytes Absolute Auto 3200 /uL (1100-4500); Lymphocytes Percent Auto 23.4 % (25-40); Mean Corpuscular HGB Conc 34.1 % (30-36); Mean Corpuscular Hemoglobin 28.7 PG (26-34); Mean Corpuscular Volume 84.1 fL (80-100); Monocytes Absolute Auto 1400 /uL (0-900); Monocytes Percent Auto 10.6 % (3-14); Neutrophils Absolute Auto 8600 /uL (1500-7000); Neutrophils Percent Auto 63.7 % (50-75); Platelet Count 215 X10^3/uL (150-400); Potassium 4.4 mmol/L (3.4-5.1); Red Blood Cell Count 6.37 X10^6/uL (4.5-5.9); Red Cell Distribution Width 13.5 % (11.6-14.8); Sodium 138 mmol/L (137-145); White Blood Cell Count 13.5 X10^3/uL (4.5-11.0)
[2019-12-23 04:28] LABS: D Dimer 5705 ng/mL (<230)
[2019-12-23] MEDS: SODIUM CHLORIDE 0.9% 1,000 ML 1000 ML IV (04:31)
--- NOTE | 2019-12-23 04:41 | DI.CT.S_ITS ---
PROCEDURE: CT ANGIO CHEST PE PROTOCOL INDICATIONS: Chest pain, shortness of breath, tachycardia TECHNIQUE: After the administration of intravenous contrast, 2 mm thick sections acquired from the pulmonary apices to the posterior costophrenic angles. 3-dimensional maximum intensity projection (MIP) coronal and sagittal reformats were then acquired through the thorax. For radiation dose reduction, the following was used: automated exposure control, adjustment of mA and/or kV according to patient size. COMPARISON: None. FINDINGS: Image quality: Excellent. Pulmonary arteries: There is extensive bilateral ulnar emboli. There is near occlusive thrombus present in the right main pulmonary artery with extension of nonocclusive thrombus in the interlobar pulmonary artery and extending into multiple right lower lobe and right middle lobe and right upper lobe branches. Additionally, there is near occlusive distal left main pulmonary artery thrombus which becomes expansile and obstructive in the left lower lobe pulmonary artery filling multiple segmental branches. There is a small amount of proximal clot in the left upper lobe pulmonary artery. Lungs and pleura: Lungs are clear. No pleural effusions or pneumothorax. Central and peripheral airways are patent. Mediastinum: Heart size is normal, without pericardial effusion. The heart is not enlarged overall. However, the RV LV ratio is greater than one. There is no reflux into the hepatic veins. No mediastinal or hilar adenopathy. Thoracic aorta is normal in caliber and enhancement. Esophagus is normal in caliber, without hiatal hernia. Bones and chest wall: No suspicious bony lesions. Ribs and thoracic spine appear intact throughout. Thyroid gland is unremarkable. No axillary or supraclavicular adenopathy. Abdomen: Visualized upper abdominal solid organs appear normal in the early arterial phase of enhancement. IMPRESSION: 1. Very extensive large bilateral pulmonary emboli with extensive occlusive clot. Mild reversal of the RV LV ratio is consistent with right heart strain. Comment: Final report is concordant with preliminary interpretation provided by [facility]. The preliminary reading radiologist also spoke with the referring clinician, Dr. Santana, by phone on 12/23/19 at 0600 hrs. PDT Comment: I again discussed findings with Dr. Berg at the time of study dictation on 12/23/19 at 0830 hrs. PDT. Dictated by: Nico Cardoza M.D. on 12/23/2019 at 7:24 Approved by: iNco Cardoza M.D. on 12/23/2019 at 7:35
[2019-12-23 04:48] LABS: Troponin I 0.185 ng/mL (0.01-0.034)
[2019-12-23 04:49] LABS: Thyroid Stimulating Hormone 1.62 uIU/mL (0.47-4.68)
[2019-12-23] MEDS: ASPIRIN 81 MG CHEW TAB 324 MG PO (04:54)
[2019-12-23 04:58] LABS: INR 1.2 (0.9-1.3); Prothrombin Time 13.3 SECONDS (10.1-12.7)
[2019-12-23 05:01] LABS: PTT Partial Thromboplastin Tim 36 SECONDS (26.4-36.2)
[2019-12-23 05:10] LABS: NT-proBNP (BNP-Adult 18+) 322 pg/mL (<125)
[2019-12-23] MEDS: HEPARIN DRIP 25,000 UNIT/500 ML IV.SOLN 50.621 UNIT IV (05:35)
[2019-12-23] MEDS: HEPARIN 5,000 UNIT/ML VIAL 7500 UNIT IV (05:35)
[2019-12-23 06:17] LABS: C-Reactive Protein Quant 2.3 mg/dL (<1.0)
[2019-12-23 06:20] LABS: Erythrocyte Sedimentation Rate 3 MM/HR (0-15)
[2019-12-25 22:07] LABS: ANA Screen, IFA Negative (.)
[2019-12-26 00:07] LABS: Antithrombin Activity 83 % (75-135); Antithrombin Antigen 82 % (72-124); Protein C-Functional 39 % (73-180); Protein S, Free 119 % (57-157)
== END 2019-12-23 06:40 | disposition short-term general hospital (02) ==
PROVIDERS: Emergency Provider Emergency Medicine; PCP Family Medicine
DX: I26.99 Other pulmonary embolism without acute cor pulmonale (principal); R00.0 Tachycardia, unspecified; R79.89 Other specified abnormal findings of blood chemistry; R06.02 Shortness of breath; R42 Dizziness and giddiness
CPT/HCPCS: 36415; 71045; 71275; 80048; 81241; 83880; 84443; 84484; 85025; 85300; 85301; 85303; 85306; 85379; 85610; 85651; 85730; 86038; 86140; 93005; 93010; 96365; 96375; 99285; 99291; 99292; J1644; J2060; Q9967

== ENCOUNTER 2020-04-01 12:49 | Emergency (ER) | payer OTHER, MEDICAID, SELFPAY ==
[2020-04-01] VITALS (18 sets, daily range): BP systolic 123–137; BP diastolic 69–86; PULSE 58–84; RESP 16–28; TEMP 36.7; O2SAT 95–99; BMI 35.5
--- NOTE | 2020-04-01 13:24 | DI.RAD.S_ITS ---
PROCEDURE: XR CHEST 1V INDICATIONS: chest pain TECHNIQUE: One view of the chest was acquired. COMPARISON: [facility], CR, XR CHEST 1V, 12/23/2019, 4:27. FINDINGS: Surgical changes and devices: None. Lungs and pleura: Lungs are clear. No pleural effusions or pneumothorax. Mediastinum: Mediastinal contours appear normal. Heart size is normal. Bones and chest wall: No suspicious bony lesions. Overlying soft tissues appear unremarkable. IMPRESSION: 1. No acute cardiopulmonary disease. Dictated by: Mateo Laguna M.D. on 04/01/2020 at 14:05 Approved by: Mateo Laguna M.D. on 04/01/2020 at 14:06
[2020-04-01 13:32] LABS: INR 1.1 (0.9-1.3)
[2020-04-01 13:35] LABS: Alanine Aminotransferase 87 IU/L (<50); Albumin 4.9 g/dL (3.5-5.0); Albumin Globulin Ratio 1.3 (1.0-2.8); Alkaline Phosphatase 68 U/L (38-126); Aspartate Aminotransferase 50 IU/L (17-59); Bilirubin Total 1.2 mg/dL (0.2-1.3); Blood Urea Nitrogen 22 mg/dL (9-20); Calcium 9.8 mg/dL (8.4-10.2); Carbon Dioxide 27 mmol/L (22-32); Chloride 103 mmol/L (98-107); Creatine Kinase 109 U/L (55-170); Estimated Glomerular Filt Rate > 60.0 mL/min (>60); Globulin 3.7 g/dL (1.7-4.1); Glucose 95 mg/dL (70-100); HEMOLYSIS < 15 (0-50); Lipase 102 U/L (23-300); PTT Partial Thromboplastin Tim 34 SECONDS (26.4-36.2); Potassium 4.6 mmol/L (3.4-5.1); Sodium 138 mmol/L (137-145); Total Protein 8.6 g/dL (6.3-8.2)
[2020-04-01 13:46] LABS: Troponin I < 0.012 ng/mL (0.01-0.034)
[2020-04-01 13:51] LABS: CKMB % Relative Index 0.5 % (1.5-5.0); Creatine Kinase MB 0.58 ng/mL (<2.37)
[2020-04-01 13:53] LABS: Add Manual Diff / Slide Review NO; Basophils Absolute Auto 0 /uL (0-100); Basophils Percent Auto 0.5 % (0-2); Eosinophils Absolute Auto 100 /uL (0-450); Eosinophils Percent Auto 1.5 % (2-4); Hematocrit 52.4 % (41-53); Hemoglobin 17.9 g/dL (13.5-17.5); Lymphocytes Absolute Auto 2400 /uL (1100-4500); Lymphocytes Percent Auto 32.4 % (25-40); Mean Corpuscular HGB Conc 34.3 % (30-36); Mean Corpuscular Hemoglobin 29.1 PG (26-34); Mean Corpuscular Volume 84.8 fL (80-100); Monocytes Absolute Auto 600 /uL (0-900); Monocytes Percent Auto 7.6 % (3-14); Neutrophils Absolute Auto 4200 /uL (1500-7000); Platelet Count 196 X10^3/uL (150-400); Red Blood Cell Count 6.18 X10^6/uL (4.5-5.9); Red Cell Distribution Width 15.7 % (11.6-14.8); White Blood Cell Count 7.3 X10^3/uL (4.5-11.0)
--- NOTE | 2020-04-01 14:07 | DI.CT.S_ITS ---
PROCEDURE: CT ANGIO CHEST PE PROTOCOL INDICATIONS: Chest pain/dyspnea/disease/history of PE TECHNIQUE: After the administration of intravenous contrast, 2 mm thick sections acquired from the pulmonary apices to the posterior costophrenic angles. 3-dimensional maximum intensity projection (MIP) coronal and sagittal reformats were then acquired through the thorax. For radiation dose reduction, the following was used: automated exposure control, adjustment of mA and/or kV according to patient size. COMPARISON: [facility], CT, CT ANGIO CHEST PE PROTOCOL, 12/23/2019, 4:45. FINDINGS: Image quality: Excellent. Diagnostic to the level of the subsegmental pulmonary arteries. Pulmonary arteries: Pulmonary arteries are normal in size, and demonstrate no intraluminal filling defects to suggest pulmonary embolism. Overall resolution of the previously seen pulmonary emboli on CT 12/23/2019. There is minimal irregularity in a distal subsegmental pulmonary artery in the right upper lobe, (/) which could represent trace residual pulmonary embolism. Lungs and pleura: Lungs are clear. No pleural effusions or pneumothorax. Central and peripheral airways are patent. Mediastinum: Heart size is normal, without pericardial effusion. No mediastinal or hilar adenopathy. Thoracic aorta is normal in caliber and enhancement. Esophagus is normal in caliber, without hiatal hernia. Bones and chest wall: No suspicious bony lesions. Ribs and thoracic spine appear intact throughout. Thyroid gland is unremarkable. No axillary or supraclavicular adenopathy. Abdomen: Hepatic steatosis. Visualized upper abdominal solid organs appear normal in the early arterial phase of enhancement. IMPRESSION: 1. No acute pulmonary embolism. 2. Overall resolved previously seen bilateral pulmonary emboli since December 2019. Question of trace residual webs or embolism in a distal subsegmental pulmonary artery in the right upper lobe. 3. No acute airspace opacity. 4. Hepatic steatosis. Dictated by: Gaurav Navarro M.D. on 04/01/2020 at 14:36 Approved by: Gaurav Navarro M.D. on 04/01/2020 at 14:47
--- NOTE | 2020-04-01 14:09 | ED.CHESTPAIN ---
HPI - Chest Pain General Chief Complaint: Chest Pain Stated Complaint: LIGHT HEADED Time Seen by Provider: 04/01/20 13:33 Source: patient and family Mode of arrival: Wheelchair Limitations: no limitations History of Present Illness HPI narrative: Patient here with . Onset 6 hours ago with dizziness and chest discomfort. Feels same as back in December 2019 seen here for bilateral pulmonary embolism, was transferred to [facility]. Is now on Xarelto. No fibrinolytic therapy was done at [facility] according to patient. History atrial fibrillation. Sees cardiology at [facility]. Patient states the dizziness lightheadedness feels like he is spinning. It comes in waves. Not constant. Worse with standing. No numbness tingling or weakness. No slurred speech or facial droop. No history bloody stools black stools nausea vomiting diarrhea fever chills. He states the chest discomfort only comes on when the dizziness occurs and he gets very anxious. No chest pain at this time. Related Data Home Medications Medication Instructions Recorded Confirmed rivaroxaban 20 mg tablet 20 mg PO DAILY tab 02/29/20 03/14/20 Previous Rx's Medication Instructions Recorded metoprolol succinate 50 mg 50 mg PO DAILY #60 tab 02/29/20 tablet,extended release 24 hr sertraline 50 mg tablet 50 mg PO DAILY #90 tab 03/14/20 meclizine 25 mg PO TID PRN #20 tab 04/01/20 Allergies Allergy/AdvReac Type Severity Reaction Status Date / Time No Known Drug Allergies Allergy Verified 03/14/20 14:26 Review of Systems Review of Systems Narrative: GENERAL: Denies chills, fatigue, malaise, fever, sweats. HEENT: Denies sinus pain, ear pain, sore throat, difficulty swallowing RESPIRATORY: Denies dyspnea, cough CARDIOVASCULAR: Complains chest pain, denies palpitations, edema, GASTROINTESTINAL: Denies nausea, vomiting, abdominal pain, diarrhea, constipation, melena. 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) Atrial fibrillation (Acute ~2018) Atypical chest pain (Acute) Chicken pox (Resolved ~1998) Chronic neck and back pain (Acute) NIÑO (dyspnea on exertion) (Acute) Eustachian tube dysfunction (Acute) Excessive daytime sleepiness (Acute) Fractures (Resolved ~2002) Insomnia disorder with non-sleep disorder mental comorbidity (Acute) Loud snoring (Acute) Low back pain (Acute) Other ear problems (Acute) Penile pain (Acute) Protein C deficiency (Acute) Pulmonary embolism (Acute) Rib pain on left side (Acute) Somatic dysfunction of rib (Acute) Somatic dysfunction of thoracolumbar region (Acute) Tobacco abuse counseling (Acute) Vertigo (Chronic ~2016) Surgical History Anesthesia (Resolved) H/O left knee surgery (Acute) History of torn meniscus of left knee (Resolved ~12/2010) Family History Father No problems noted. Mother No problems noted. Grandmother Stroke Grandfather Cancer Social History Smoking Status: Former smoker Smoking Status: Former smoker alcohol intake frequency: 0-2 drinks per day Substance Use Type: does not use Exam Narrative Exam Narrative: GENERAL: patient appears stated age. Well-nourished, well-developed patient, in no distress, not toxic not dyspneic HEAD: Normocephalic. EYES: Pupils equal round and reactive. No scleral icterus. No injection no discharge ENT: Mucous membranes moist. No drooling no tongue elevation no trismus no malocclusion NECK: Trachea midline. Non tender CARDIOVASCULAR: Regular rate and rhythm without murmurs, gallops, or rubs. RESPIRATORY: Clear to auscultation. Breath sounds equal bilaterally. No wheezes, rales, or rhonchi. GASTROINTESTINAL: Abdomen soft, non-tender, nondistended. EXTREMITIES: No gross deformities. BACK: Nontender without deformity or crepitance. No flank tenderness. NEURO: AOx4. Clear speech no facial droop light touch intact to bilateral face hands and legs. 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 Negative pronator drift. Strong bilateral hip flexion extension. SKIN: Warm and dry PSYCH: Not anxious, is cooperative Initial Vital Signs Initial Vital Signs: Vital Signs Temperature 98.1 F 04/01/20 12:59 Pulse Rate 70 04/01/20 12:59 Respiratory Rate 16 04/01/20 12:59 Blood Pressure 137/86 04/01/20 12:59 Pulse Oximetry 98 04/01/20 12:59 Scores HEART Score Heart Score history: Slightly Suspicious Heart Score EKG: Normal Heart Score Age: < 45 years old Heart Score risk factors: No known risk factors Heart Score troponin: < or = to normal limit Heart Score Total: 0 NIH Stroke Scale Level of Conciousness: Alert, keenly responsive Ask month/age: Answers both questions correctly. Open/close eyes, close hand: Performs both tasks correctly Best gaze horizontal: Normal Visual zhou: No visual loss Facial palsy: Normal symetrical movement Left arm drift: No drift for full 10 sec Right arm drift: No drift for full 10 sec Left leg drift: No drift for full 5 sec Right leg drift: No drift for full 5 sec Limb ataxia: Absent Sensory on face/arms/legs: Normal, no sensory loss Best language: No aphasia, normal Dysarthria: Normal Extinction or inattention: No abnormality Total NIH Stroke scale score: 0 Course Course Course Narrative: During course of stay no slurred speech facial droop numbness tender weakness. Orders Ordered: ED Orders 04/01/20 13:14 EKG-12 Lead Routine 04/01/20 13:15 Complete Blood Count AUTO DIFF Stat Comprehensive Metabolic Panel Stat Lipase Stat Partial Thromboplastin Time Stat Prothrombin Time INR Stat Troponin & CK Cardiac Panel Stat 04/01/20 13:24 XR chest 1V Stat EKG-12 Lead Stat 04/01/20 14:07 CT angio chest PE protocol Stat 04/01/20 15:58 Troponin I Stat 04/01/20 17:08 CT head/brain wo con Stat Discontinued Medications Sodium Chloride (Normal Saline 0.9%) 1,000 mls @ 1,000 mls/hr IV BOLUS ONE Stop: 04/01/20 15:07 Last Infusion: 04/01/20 16:00 Dose: 0 mls/hr Documented by: Admin: 04/01/20 14:58 Dose: 1,000 mls/hr Documented by: GABI Sodium Chloride (Normal Saline 0.9%) 1,000 mls @ 1,000 mls/hr IV BOLUS ONE Stop: 04/01/20 17:54 Last Infusion: 04/01/20 18:33 Dose: 0 mls/hr Documented by: Admin: 04/01/20 17:13 Dose: 1,000 mls/hr Documented by: GABI Meclizine HCl (Antivert) 25 mg PO NOW ONE Stop: 04/01/20 15:25 Last Admin: 04/01/20 15:28 Dose: 25 mg Documented by: GABI Reevaluation(s) Reevaluation #1: Orthostatics completed. Feeling better on standing. The knee was before. States self gait in hallway no ataxia. Time: 17:09 Reevaluation #2: Updated patient results. He desires discharge home and follow-up with his primary care on April 11. He thinks the Antivert may have helped a little bit in desires prescription Time: 17:55 Vital Signs Vital signs: Vital Signs - 8 hr 04/01/20 12:59 04/01/20 13:28 04/01/20 13:30 Temperature 98.1 F Pulse Rate 70 63 71 Pulse Rate [Orthostatic Lying] Pulse Rate [Orthostatic Sitting] Pulse Rate [Orthostatic Standing] Respiratory Rate 16 21 27 H Blood Pressure 137/86 135/83 Blood Pressure [Orthostatic Lying] Blood Pressure [Orthostatic Sitting] Blood Pressure [Orthostatic Standing] Pulse Oximetry 98 95 96 04/01/20 14:00 04/01/20 14:30 04/01/20 15:00 Temperature Pulse Rate 67 65 62 Pulse Rate [Orthostatic Lying] Pulse Rate [Orthostatic Sitting] Pulse Rate [Orthostatic Standing] Respiratory Rate 25 H 22 25 H Blood Pressure 126/80 Blood Pressure [Orthostatic Lying] Blood Pressure [Orthostatic Sitting] Blood Pressure [Orthostatic Standing] Pulse Oximetry 95 96 97 04/01/20 15:30 04/01/20 16:00 04/01/20 16:30 Temperature Pulse Rate 66 58 L 60 Pulse Rate [Orthostatic Lying] Pulse Rate [Orthostatic Sitting] Pulse Rate [Orthostatic Standing] Respiratory Rate 27 H 24 22 Blood Pressure 129/82 123/78 124/77 Blood Pressure [Orthostatic Lying] Blood Pressure [Orthostatic Sitting] Blood Pressure [Orthostatic Standing] Pulse Oximetry 97 97 97 04/01/20 16:57 04/01/20 16:58 04/01/20 17:00 Temperature Pulse Rate 72 83 75 Pulse Rate [Orthostatic Lying] Pulse Rate [Orthostatic Sitting] Pulse Rate [Orthostatic Standing] Respiratory Rate 22 23 28 H Blood Pressure 129/82 128/75 Blood Pressure [Orthostatic Lying] Blood Pressure [Orthostatic Sitting] Blood Pressure [Orthostatic Standing] Pulse Oximetry 97 04/01/20 17:06 04/01/20 17:07 04/01/20 17:30 Temperature Pulse Rate 84 60 Pulse Rate [Orthostatic Lying] 62 Pulse Rate [Orthostatic Sitting] 72 Pulse Rate [Orthostatic Standing] 84 Respiratory Rate 18 Blood Pressure Blood Pressure [Orthostatic Lying] 124/77 Blood Pressure [Orthostatic Sitting] 129/82 Blood Pressure [Orthostatic Standing] 128/75 Pulse Oximetry 96 04/01/20 18:00 04/01/20 18:29 04/01/20 18:30 Temperature Pulse Rate 58 L 59 L 58 L Pulse Rate [Orthostatic Lying] Pulse Rate [Orthostatic Sitting] Pulse Rate [Orthostatic Standing] Respiratory Rate 19 18 17 Blood Pressure 124/69 Blood Pressure [Orthostatic Lying] Blood Pressure [Orthostatic Sitting] Blood Pressure [Orthostatic Standing] Pulse Oximetry 97 99 99 MDM - Chest Pain Differential Diagnosis Differential diagnosis: Likely pneumothorax, atypical chest pain, chest pain and other (Pulmonary embolism) Medical Records Data Attestation: I reviewed the patient's medical records. Lab Data Attestation: I reviewed the patient's lab results. Result diagrams: 04/01/20 13:15 04/01/20 13:15 Labs: Lab Results 04/01/20 04/01/20 04/01/20 Range/Units 13:15 13:15 13:15 WBC 7.3 (4.5-11.0) X10^3/uL RBC 6.18 H (4.5-5.9) X10^6/uL Hgb 17.9 H (13.5-17.5) g/dL Hct 52.4 (41-53) % MCV 84.8 (80-100) fL MCH 29.1 (26-34) PG MCHC 34.3 (30-36) % RDW 15.7 H (11.6-14.8) % Plt Count 196 (150-400) X10^3/uL Neut % (Auto) 58.0 (50-75) % Lymph % (Auto) 32.4 (25-40) % [place] % (Auto) 7.6 (3-14) % Eos % (Auto) 1.5 L (2-4) % Baso % (Auto) 0.5 (0-2) % Neut # (Auto) 4200 (5266-9155) /uL Lymph # (Auto) 2400 (6146-3336) /uL [place] # (Auto) 600 (0-900) /uL Eos # (Auto) 100 (0-450) /uL Baso # (Auto) 0 (0-100) /uL PT 13.0 H (10.1-12.7) SECONDS INR 1.1 (0.9-1.3) APTT 34 D (26.4-36.2) SECONDS Sodium 138 (137-145) mmol/L Potassium 4.6 (3.4-5.1) mmol/L Chloride 103 (98-107) mmol/L Carbon Dioxide 27 (22-32) mmol/L BUN 22 H (9-20) mg/dL Creatinine 1.10 (0.66-1.25) mg/dL Estimated GFR > 60.0 (>60) mL/min BUN/Creatinine Ratio 20.0 (6-22) Glucose 95 (70-100) mg/dL Calcium 9.8 (8.4-10.2) mg/dL Total Bilirubin 1.2 (0.2-1.3) mg/dL AST 50 (17-59) IU/L ALT 87 H (<50) IU/L Alkaline Phosphatase 68 (38-126) U/L Total Creatine Kinase 109 (55-170) U/L CK-MB (CK-2) 0.58 (<2.37) ng/mL CK-MB (CK-2) Rel Index 0.5 L (1.5-5.0) % Troponin I < 0.012 (0.01-0.034) ng/mL Total Protein 8.6 H (6.3-8.2) g/dL Albumin 4.9 (3.5-5.0) g/dL Globulin 3.7 (1.7-4.1) g/dL Albumin/Globulin Ratio 1.3 (1.0-2.8) Lipase 102 (23-300) U/L 04/01/20 Range/Units 15:58 WBC (4.5-11.0) X10^3/uL RBC (4.5-5.9) X10^6/uL Hgb (13.5-17.5) g/dL Hct (41-53) % MCV (80-100) fL MCH (26-34) PG MCHC (30-36) % RDW (11.6-14.8) % Plt Count (150-400) X10^3/uL Neut % (Auto) (50-75) % Lymph % (Auto) (25-40) % [place] % (Auto) (3-14) % Eos % (Auto) (2-4) % Baso % (Auto) (0-2) % Neut # (Auto) (0546-4754) /uL Lymph # (Auto) (0204-6667) /uL [place] # (Auto) (0-900) /uL Eos # (Auto) (0-450) /uL Baso # (Auto) (0-100) /uL PT (10.1-12.7) SECONDS INR (0.9-1.3) APTT (26.4-36.2) SECONDS Sodium (137-145) mmol/L Potassium (3.4-5.1) mmol/L Chloride (98-107) mmol/L Carbon Dioxide (22-32) mmol/L BUN (9-20) mg/dL Creatinine (0.66-1.25) mg/dL Estimated GFR (>60) mL/min BUN/Creatinine Ratio (6-22) Glucose (70-100) mg/dL Calcium (8.4-10.2) mg/dL Total Bilirubin (0.2-1.3) mg/dL AST (17-59) IU/L ALT (<50) IU/L Alkaline Phosphatase (38-126) U/L Total Creatine Kinase (55-170) U/L CK-MB (CK-2) (<2.37) ng/mL CK-MB (CK-2) Rel Index (1.5-5.0) % Troponin I < 0.012 (0.01-0.034) ng/mL Total Protein (6.3-8.2) g/dL Albumin (3.5-5.0) g/dL Globulin (1.7-4.1) g/dL Albumin/Globulin Ratio (1.0-2.8) Lipase (23-300) U/L Imaging Data Chest x-ray: Radiologist's Impression: [address] [address] XRay Report Signed Patient: Regis Wolf [facility]#: [id number] : 1990Acct:[id number] Age/Sex: 29 / MDate of Service: 04/01/20 Loc: ED Accession Number: [id number] Procedure: XR chest 1V Ordering Provider: Prince Zavala MD PROCEDURE: XR CHEST 1V INDICATIONS: chest pain TECHNIQUE: One view of the chest was acquired. COMPARISON: [facility], , XR CHEST 1V, 12/23/2019, 4:27. FINDINGS: Surgical changes and devices: None. Lungs and pleura: Lungs are clear. No pleural effusions or pneumothorax. Mediastinum: Mediastinal contours appear normal. Heart size is normal. Bones and chest wall: No suspicious bony lesions. Overlying soft tissues appear unremarkable. IMPRESSION: 1. No acute cardiopulmonary disease. Dictated by: Mateo Laguna M.D. on 04/01/2020 at 14:05 Approved by: Mateo Laguna M.D. on 04/01/2020 at 14:06 CT scan - chest: Radiologist's Impression: [address] [address] [address] Scan Report Signed Patient: Regis Wolf [facility]#: [id number] : 1990Acct:[id number] Age/Sex: 29 / MDate of Service: 04/01/20 Loc: ED Accession Number: [id number] Procedure: CT angio chest PE protocol Ordering Provider: Prince Zavala MD PROCEDURE: CT ANGIO CHEST PE PROTOCOL INDICATIONS: Chest pain/dyspnea/disease/history of PE TECHNIQUE: After the administration of intravenous contrast, 2 mm thick sections acquired from the pulmonary apices to the posterior costophrenic angles. 3-dimensional maximum intensity projection (MIP) coronal and sagittal reformats were then acquired through the thorax. For radiation dose reduction, the following was used: automated exposure control, adjustment of mA and/or kV according to patient size. COMPARISON: [facility], CT, CT ANGIO CHEST PE PROTOCOL, 12/23/2019, 4:45. FINDINGS: Image quality: Excellent. Diagnostic to the level of the subsegmental pulmonary arteries. Pulmonary arteries: Pulmonary arteries are normal in size, and demonstrate no intraluminal filling defects to suggest pulmonary embolism. Overall resolution of the previously seen pulmonary emboli on CT 12/23/2019. There is minimal irregularity in a distal subsegmental pulmonary artery in the right upper lobe, (4/84) which could represent trace residual pulmonary embolism. Lungs and pleura: Lungs are clear. No pleural effusions or pneumothorax. Central and peripheral airways are patent. Mediastinum: Heart size is normal, without pericardial effusion. No mediastinal or hilar adenopathy. Thoracic aorta is normal in caliber and enhancement. Esophagus is normal in caliber, without hiatal hernia. Bones and chest wall: No suspicious bony lesions. Ribs and thoracic spine appear intact throughout. Thyroid gland is unremarkable. No axillary or supraclavicular adenopathy. Abdomen: Hepatic steatosis. Visualized upper abdominal solid organs appear normal in the early arterial phase of enhancement. IMPRESSION: 1. No acute pulmonary embolism. 2. Overall resolved previously seen bilateral pulmonary emboli since December 2019. Question of trace residual webs or embolism in a distal subsegmental pulmonary artery in the right upper lobe. 3. No acute airspace opacity. 4. Hepatic steatosis. Dictated by: Gaurav Navarro M.D. on 04/01/2020 at 14:36 Approved by: Gaurav Navarro M.D. on 04/01/2020 at 14:47 CT scan - head: Radiologist's Impression: [place] [address] CT Scan Report Signed Patient: Regis Wolf [facility]#: [id number] : 1990Acct:[id number] Age/Sex: 29 / MDate of Service: 04/01/20 Loc: ED Accession Number: [id number] Procedure: CT head/brain wo con Ordering Provider: Prince Zavala MD PROCEDURE: CT HEAD/BRAIN WO CON INDICATIONS: Dizziness TECHNIQUE: Noncontrast 4.5 mm thick angled axial sections acquired from the foramen magnum to the vertex, with coronal and sagittal reformats. For radiation dose reduction, the following was used: automated exposure control, adjustment of mA and/or kV according to patient size. COMPARISON: [facility], CT, HEAD WITHOUT CONTRAST, 06/16/2011, 19:26. FINDINGS: Image quality: Excellent. CSF spaces: Basal cisterns are patent. No extra-axial fluid collections. Ventricles are normal in size and shape. Brain: No midline shift. No intracranial masses or hemorrhage. Hernandez-white matter interface is normal. There is a contrasted appearance within the brain reflective of recent CT angio chest exam of 04/01/2020. Skull and face: Calvarium and visualized facial bones are intact, without suspicious lesions. Sinuses: Visualized sinuses and mastoids are clear. IMPRESSION: 1. No acute intracranial process. Dictated by: Lindy Farfan M.D. on 04/01/2020 at 17:24 Approved by: Lindy Farfan M.D. on 04/01/2020 at 17:25 ECG Data Attestation: I personally reviewed and interpreted this ECG as follows: Interpretation: Normal sinus rhythm, no ST elevation or depression. Rate 68 MDM Narrative Medical decision making narrative: Appropriate for discharge. Improved with Antivert. Low heart score. Low heart risk factors. No primary family history of coronary disease. Chest pain nonspecific. Two sets of heart enzymes completed. 8 hours from time of onset. Dizziness nonspecific. No other neuro deficits. Low suspicion for stroke at this time. NIH score 0. CT head negative orthostatics were completed. Blood pressure remained stable however pulse did go up 20 points from 60-80. Patient is on beta-taniya and maybe masked. Dizziness may be attributed to hypovolemia Discharge Plan Departure Patient Disposition: Home Clinical Impression: Dizziness Instructions: DI for Dizziness-Nonvertigo Activity Restrictions/Additional Instructions: Return if worse or if any questions or concerns. See your doctor as scheduled. Keep well hydrated. Prescription has been sent here [facility] in [facility]. Prescriptions: New meclizine 12.5 mg tablet 25 mg PO TID PRN (Reason: dizziness) Qty: 20 RF: 0 No Action sertraline 50 mg tablet 50 mg PO DAILY Qty: 90 RF: 1 rivaroxaban 20 mg tablet 20 mg PO DAILY RF: 0 metoprolol succinate 50 mg tablet extended release 24 hr 50 mg PO DAILY Qty: 60 RF: 3 Referrals: Gregory Case DO [Primary Care Provider] -
[2020-04-01] MEDS: SODIUM CHLORIDE 0.9% 1,000 ML 1000 ML IV ×2 (14:58→17:13)
[2020-04-01] MEDS: MECLIZINE HCL 12.5 MG TABLET 25 MG PO (15:28)
[2020-04-01 16:25] LABS: Troponin I < 0.012 ng/mL (0.01-0.034)
--- NOTE | 2020-04-01 17:08 | DI.CT.S_ITS ---
PROCEDURE: CT HEAD/BRAIN WO CON INDICATIONS: Dizziness TECHNIQUE: Noncontrast 4.5 mm thick angled axial sections acquired from the foramen magnum to the vertex, with coronal and sagittal reformats. For radiation dose reduction, the following was used: automated exposure control, adjustment of mA and/or kV according to patient size. COMPARISON: [facility], CT, HEAD WITHOUT CONTRAST, 06/16/2011, 19:26. FINDINGS: Image quality: Excellent. CSF spaces: Basal cisterns are patent. No extra-axial fluid collections. Ventricles are normal in size and shape. Brain: No midline shift. No intracranial masses or hemorrhage. Hernandez-white matter interface is normal. There is a contrasted appearance within the brain reflective of recent CT angio chest exam of 04/01/2020. Skull and face: Calvarium and visualized facial bones are intact, without suspicious lesions. Sinuses: Visualized sinuses and mastoids are clear. IMPRESSION: 1. No acute intracranial process. Dictated by: Lindy Farfan M.D. on 04/01/2020 at 17:24 Approved by: Lindy Farfan M.D. on 04/01/2020 at 17:25
== END 2020-04-01 18:40 | disposition home or self-care (01) ==
PROVIDERS: Emergency Provider Emergency Medicine; PCP Family Medicine
DX: R42 Dizziness and giddiness (principal); I48.91 Unspecified atrial fibrillation; F41.9 Anxiety disorder, unspecified; R06.00 Dyspnea, unspecified; R07.9 Chest pain, unspecified
CPT/HCPCS: 36415; 70450; 71045; 71275; 80053; 82550; 82553; 83690; 84484; 85025; 85610; 85730; 93005; 96360; 96361; 99284; Q9967

== ENCOUNTER 2020-12-25 09:15 | Emergency (ER) | payer OTHER, MEDICAID, SELFPAY ==
[2020-12-25] VITALS (10 sets, daily range): BP systolic 127–140; BP diastolic 71–82; PULSE 62–75; RESP 17–30; TEMP 37; O2SAT 96–100; BMI 39.1
--- NOTE | 2020-12-25 09:57 | DI.RAD.S_ITS ---
PROCEDURE: XR CHEST 1V INDICATIONS: chest pain TECHNIQUE: One view of the chest was acquired. COMPARISON: [facility], CR, XR CHEST 1V, 04/01/2020, 13:26. [facility], CR, XR CHEST 1V, 12/23/2019, 4:27. FINDINGS: Surgical changes and devices: None. Lungs and pleura: Lungs are clear. No pleural effusions or pneumothorax. Mediastinum: Mediastinal contours appear normal. Heart size is normal. Bones and chest wall: No suspicious bony lesions. Overlying soft tissues appear unremarkable. IMPRESSION: Normal for age, source of current chest pain symptoms is not seen. Dictated by: Mau East M.D. on 12/25/2020 at 10:29 Approved by: Mau East M.D. on 12/25/2020 at 10:29
[2020-12-25 10:14] LABS: Hematocrit 48.1 % (41-53); Hemoglobin 16.6 g/dL (13.5-17.5); Mean Corpuscular HGB Conc 34.5 % (30-36); Mean Corpuscular Hemoglobin 29.3 PG (26-34); Mean Corpuscular Volume 84.9 fL (80-100); Red Blood Cell Count 5.67 X10^6/uL (4.5-5.9); Red Cell Distribution Width 13.8 % (11.6-14.8); White Blood Cell Count 7.9 X10^3/uL (4.5-11.0)
[2020-12-25 10:17] LABS: Add Manual Diff / Slide Review YES; PTT Partial Thromboplastin Tim 38 SECONDS (26.4-36.2)
[2020-12-25 10:23] LABS: Alanine Aminotransferase 86 IU/L (<50); Albumin 4.6 g/dL (3.5-5.0); Albumin Globulin Ratio 1.6 (1.0-2.8); Alkaline Phosphatase 49 U/L (38-126); Aspartate Aminotransferase 57 IU/L (17-59); BUN Creatinine Ratio 18.9 (6-22); Bilirubin Total 0.9 mg/dL (0.2-1.3); Blood Urea Nitrogen 17 mg/dL (9-20); Calcium 9.6 mg/dL (8.4-10.2); Carbon Dioxide 25 mmol/L (22-32); Chloride 106 mmol/L (98-107); Creatine Kinase 229 U/L (55-170); Estimated Glomerular Filt Rate > 60.0 mL/min (>60); Globulin 2.9 g/dL (1.7-4.1); Glucose 97 mg/dL (70-100); HEMOLYSIS 25 (0-50); Lipase 73 U/L (23-300); Potassium 4.1 mmol/L (3.4-5.1); Sodium 139 mmol/L (137-145); Total Protein 7.5 g/dL (6.3-8.2)
[2020-12-25 10:35] LABS: Troponin I < 0.012 ng/mL (0.01-0.034)
[2020-12-25 10:36] LABS: Neutrophils Absolute Manual 4266 /uL (3000-5900); RBC Morphology Normal Morphology; Total Cells Counted 100
[2020-12-25 10:37] LABS: Platelet Count 219 X10^3/uL (150-400)
[2020-12-25 10:38] LABS: CKMB % Relative Index 1.1 % (1.5-5.0); Creatine Kinase MB 2.43 ng/mL (<2.37)
--- NOTE | 2020-12-25 10:46 | ED_ITS ---
HPI - Chest Pain General Chief Complaint: Chest Pain Stated Complaint: left chest pain, lightheaded, weak Time Seen by Provider: 12/25/20 10:44 Source: patient Mode of arrival: Ambulatory Limitations: no limitations History of Present Illness HPI narrative: This is a 30-year-old male comes emergency department with complaint of chest pain that started last night. Patient states it has been constant since then in the left upper chest. He denies any diaphoresis, he felt mildly short of breath. He had some dizziness intermittently and felt like he was almost going to pass out earlier today. He is able to sit down it resolved he had been standing for a period of time when it occurred. He denies fevers or chills no cold cough or congestion. No nausea or vomiting. No abdominal, back or flank pain. No issues with bowel movements, no issues with urination. Patient has not had any new swelling in his extremities. Patient has a known protein C deficiency, atrial fibrillation and is on Xarelto daily for prior pulmonary emboli, metoprolol for atrial fibrillation and a daily anti anxiety medication. His only past surgical history was a left meniscus repair remotely. No allergies, no tobacco, occasional alcohol, no illicit. Patient states he has been taking his medications regularly. He has not had any recent for about 10 factors. Related Data Previous Rx's Medication Instructions Recorded hydroxyzine HCl 25 mg tablet 25 mg PO BID PRN #60 tab 06/05/20 cyclobenzaprine 10 mg tablet 10 mg PO BEDTIME PRN #60 tab 08/12/20 metoprolol succinate 50 mg 50 mg PO DAILY #90 tab 09/09/20 tablet,extended release 24 hr mirtazapine 15 mg tablet 45 mg PO BEDTIME #90 tab 10/09/20 rivaroxaban 20 mg tablet 20 mg PO QPM #90 tab 10/09/20 Allergies Allergy/AdvReac Type Severity Reaction Status Date / Time No Known Drug Allergies Allergy Verified 12/25/20 09:54 Review of Systems Review of Systems ROS Unobtainable: All systems reviewed & are unremarkable except as noted in HPI and below Patient History Medical History (Updated 12/25/20 @ 11:49 by Kacey Ballard DO) Acne (~2003) Anxiety disorder due to general medical condition Atrial fibrillation (~2017) Atypical chest pain Chicken pox (~1998) Chronic neck and back pain NIÑO (dyspnea on exertion) Eustachian tube dysfunction Excessive daytime sleepiness Fractures (~2002) History of bruxism Insomnia disorder with non-sleep disorder mental comorbidity Loud snoring Low back pain Lumbosacral radiculopathy at L5 Other ear problems Pelvic somatic dysfunction Penile pain Protein C deficiency Pulmonary embolism Rib pain on left side Sacral region somatic dysfunction Somatic dysfunction of rib Somatic dysfunction of thoracolumbar region Tobacco abuse counseling Vertigo (~2016) Surgical History Anesthesia H/O left knee surgery History of torn meniscus of left knee (~12/2010) Family History Father No problems noted. Mother No problems noted. Grandmother Stroke Grandfather Cancer Social History Smoking Status: Former smoker Smoking Status: Former smoker alcohol intake frequency: 0-2 drinks per day Substance Use Type: does not use Exam Narrative Exam Narrative: GENERAL: Alert and oriented x three, male in mild distress. HEENT: Head normocephalic, atraumatic, EOMI, pupils reactive, face symmetric, moist mucous membranes NECK: Supple, full range of motion CARDIOVASCULAR: Regular rate and rhythm without murmurs, rubs or gallops. No JVD. No swelling bilateral lower extremities. No reproducible chest pain. No rash or skin changes to the chest. RESPIRATORY: Breath sounds equal bilaterally, no wheezes rales or rhonchi. ABDOMEN: Soft, nontender. Normoactive bowel sounds all 4 quadrants. No guarding or rebound, rigidity, no mass, no bruit or pulsatile mass. : No CVA tenderness EXTREMITIES: Normal range of motion, no clubbing or edema. Neurovascularly intact NEUROLOGICAL: Cranial nerves II through XII grossly intact. Moving all extremities SKIN: Warm, dry, no petechiae, no rashes or lesions. Initial Vital Signs Initial Vital Signs: Vital Signs Temperature 98.6 F 12/25/20 09:43 Pulse Rate 75 12/25/20 09:43 Respiratory Rate 22 12/25/20 09:43 Blood Pressure 128/77 12/25/20 09:43 Pulse Oximetry 98 12/25/20 09:43 Course Orders Ordered: Discontinued Medications Sodium Chloride (Normal Saline 0.9%) 1,000 mls @ 1,000 mls/hr IV BOLUS ONE Stop: 12/25/20 12:45 Last Infusion: 12/25/20 13:06 Dose: 0 mls/hr Documented by: Admin: 12/25/20 11:55 Dose: 1,000 mls/hr Documented by: SURAJ Vital Signs Vital signs: Vital Signs - 8 hr 12/25/20 09:43 12/25/20 10:25 12/25/20 10:30 Temperature 98.6 F Pulse Rate 75 66 66 Respiratory Rate 22 19 19 Blood Pressure 128/77 Pulse Oximetry 98 96 96 12/25/20 11:00 12/25/20 11:30 12/25/20 12:00 Temperature Pulse Rate 66 66 65 Respiratory Rate 17 18 30 H Blood Pressure Pulse Oximetry 96 97 98 12/25/20 12:12 12/25/20 12:30 Temperature Pulse Rate 67 65 Respiratory Rate 19 30 H Blood Pressure 127/71 140/82 Pulse Oximetry 98 100 MDM - Chest Pain Lab Data Result diagrams: 12/25/20 09:42 12/25/20 09:42 Labs: Lab Results 12/25/20 12/25/20 12/25/20 Range/Units 09:42 09:42 09:42 WBC 7.9 (4.5-11.0) X10^3/uL RBC 5.67 (4.5-5.9) X10^6/uL Hgb 16.6 (13.5-17.5) g/dL Hct 48.1 (41-53) % MCV 84.9 (80-100) fL MCH 29.3 (26-34) PG MCHC 34.5 (30-36) % RDW 13.8 (11.6-14.8) % Plt Count 219 (150-400) X10^3/uL Neut % (Auto) Not Reportable Lymph % (Auto) Not Reportable [place] % (Auto) Not Reportable Eos % (Auto) Not Reportable Baso % (Auto) Not Reportable Lymph # (Auto) Not Reportable [place] # (Auto) Not Reportable Baso # (Auto) Not Reportable Total Counted 100 Seg Neutrophils % 53.0 (38-70) % Band Neutrophils % 1.0 L (3-7) % Lymphocytes % (Manual) 34.0 (25-45) % Monocytes % (Manual) 10.0 (2-11) % Eosinophils % (Manual) 2.0 (2-4) % Neutrophils # (Manual) 4266 (0620-2670) /uL RBC Morphology Normal morphology APTT 38 H (26.4-36.2) SECONDS Sodium 139 (137-145) mmol/L Potassium 4.1 (3.4-5.1) mmol/L Chloride 106 (98-107) mmol/L Carbon Dioxide 25 (22-32) mmol/L BUN 17 (9-20) mg/dL Creatinine 0.90 (0.66-1.25) mg/dL Estimated GFR > 60.0 (>60) mL/min BUN/Creatinine Ratio 18.9 (6-22) Glucose 97 (70-100) mg/dL Calcium 9.6 (8.4-10.2) mg/dL Total Bilirubin 0.9 (0.2-1.3) mg/dL AST 57 (17-59) IU/L ALT 86 H (<50) IU/L Alkaline Phosphatase 49 (38-126) U/L Total Creatine Kinase 229 H (55-170) U/L CK-MB (CK-2) 2.43 H (<2.37) ng/mL CK-MB (CK-2) Rel Index 1.1 L (1.5-5.0) % Troponin I < 0.012 (0.01-0.034) ng/mL Total Protein 7.5 (6.3-8.2) g/dL Albumin 4.6 (3.5-5.0) g/dL Globulin 2.9 (1.7-4.1) g/dL Albumin/Globulin Ratio 1.6 (1.0-2.8) Lipase 73 (23-300) U/L Imaging Data Chest x-ray: Radiologist's Impression: [address] [id number] ReportSigned Patient: Regis Wolf [facility]#: [id number]: 1990Acct:[id number]/Sex: 30 / MDate of Service: 12/25/20Loc: EDAccession Number: [id number] Procedure: XR chest 1V Ordering Provider: Kacey Ballard D.O. PROCEDURE: XR CHEST 1V INDICATIONS: chest pain TECHNIQUE: One view of the chest was acquired. COMPARISON: [facility], CR, XR CHEST 1V, 04/01/2020, 13:26. [facility], CR, XR CHEST 1V, 12/23/2019, 4:27. FINDINGS: Surgical changes and devices: None. Lungs and pleura: Lungs are clear. No pleural effusions or pneumothorax. Mediastinum: Mediastinal contours appear normal. Heart size is normal. Bones and chest wall: No suspicious bony lesions. Overlying soft tissues appear unremarkable. IMPRESSION: Normal for age, source of current chest pain symptoms is not seen. Dictated by: Mau East M.D. on 12/25/2020 at 10:29 Approved by: Mau East M.D. on 12/25/2020 at 10:29 CT scan - chest: Radiologist's Impression: [address] [id number] Scan ReportSigned Patient: Regis Wolf [facility]#: [id number]: 1990Acct:[id number]/Sex: 30 / MDate of Service: 12/25/20Loc: EDAccession Number: [id number] Procedure: CT angio chest PE protocol Ordering Provider: Kacey Ballard D.O. PROCEDURE: CT ANGIO CHEST PE PROTOCOL INDICATIONS: chest pain, hx PE TECHNIQUE: After the administration of intravenous contrast, 2 mm thick sections acquired from the pulmonary apices to the posterior costophrenic angles. 3-dimensional maximum intensity projection (MIP) coronal and sagittal reformats were then acquired through the thorax. For radiation dose reduction, the following was used: automated exposure control, adjustment of mA and/or kV according to patient size. COMPARISON: None. FINDINGS: Image quality: Excellent. Pulmonary arteries: Pulmonary arteries are normal in size, and demonstrate no intraluminal filling defects to suggest central pulmonary embolism. Lungs and pleura: Lungs are clear. No pleural effusions or pneumothorax. Central and peripheral airways are patent. Mediastinum: Heart size is normal, without pericardial effusion. No mediastinal or hilar adenopathy. Thoracic aorta is normal in caliber and enhancement. Esophagus is normal in caliber, without hiatal hernia. Bones and chest wall: No suspicious bony lesions. Ribs and thoracic spine appear intact throughout. Thyroid gland is normal. No axillary or supraclavicular adenopathy. Abdomen: Visualized upper abdominal solid organs appear normal in the early arterial phase of enhancement. IMPRESSION: No pulmonary embolism or other acute finding in the chest. Dictated by: Jericho Hernandez M.D. on 12/25/2020 at 12:26 Approved by: Jericho Hernandez M.D. on 12/25/2020 at 12:31 ECG Data Attestation: I personally reviewed and interpreted this ECG as follows: Prior ECG tracings: available for review Interpretation: Normal sinus rhythm rate of 73 [place] 140 QRS of 94 and QTC of 442. No acute ST depression or elevation. MDM Narrative Medical decision making narrative: Patient's labs are reassuring with 12 hours plus of constant chest pain and negative troponin with no acute EKG changes. Patient has bump in his total creatinine kinase but no major lab abnormalities otherwise. Discussed obtaining D-dimer versus CTA although D-dimer does not completely rule out risk. And if elevated which is possible with his past medical history would still require CTA. Patient elects to move forward with imaging. This was obtained and is negative. Patient is feeling better here in the department. Discharge Plan Departure Patient Disposition: Home Clinical Impression: Chest pain Instructions: DI for Chest Pain Activity Restrictions/Additional Instructions: Follow up with your physician for recheck. Your imaging and labs today are reassuring. Your total creatinine kinase is mildly elevated today and your ALT which is or liver enzyme is very mildly elevated as well and has been in the past comparison to 2020. Please return for new or worsening symptoms, lightheadedness, passing out, new chest pain or shortness of breath, persistent vomiting, black or bloody stools or other new or concerning symptoms. Prescriptions: No Action rivaroxaban 20 mg tablet 20 mg PO QPM Qty: 90 RF: 1 mirtazapine 15 mg tablet 45 mg PO BEDTIME Qty: 90 RF: 1 hydroxyzine HCl 25 mg tablet 25 mg PO BID PRN (Reason: anxiety) Qty: 60 RF: 0 cyclobenzaprine 10 mg tablet 10 mg PO BEDTIME PRN (Reason: muscle spasm) Qty: 60 RF: 0 metoprolol succinate 50 mg tablet extended release 24 hr 50 mg PO DAILY Qty: 90 RF: 3 Referrals: Gregory Case DO [Primary Care Provider] - Stand Alone Forms: Work Release Note
--- NOTE | 2020-12-25 11:46 | DI.CT.S_ITS ---
PROCEDURE: CT ANGIO CHEST PE PROTOCOL INDICATIONS: chest pain, hx PE TECHNIQUE: After the administration of intravenous contrast, 2 mm thick sections acquired from the pulmonary apices to the posterior costophrenic angles. 3-dimensional maximum intensity projection (MIP) coronal and sagittal reformats were then acquired through the thorax. For radiation dose reduction, the following was used: automated exposure control, adjustment of mA and/or kV according to patient size. COMPARISON: None. FINDINGS: Image quality: Excellent. Pulmonary arteries: Pulmonary arteries are normal in size, and demonstrate no intraluminal filling defects to suggest central pulmonary embolism. Lungs and pleura: Lungs are clear. No pleural effusions or pneumothorax. Central and peripheral airways are patent. Mediastinum: Heart size is normal, without pericardial effusion. No mediastinal or hilar adenopathy. Thoracic aorta is normal in caliber and enhancement. Esophagus is normal in caliber, without hiatal hernia. Bones and chest wall: No suspicious bony lesions. Ribs and thoracic spine appear intact throughout. Thyroid gland is normal. No axillary or supraclavicular adenopathy. Abdomen: Visualized upper abdominal solid organs appear normal in the early arterial phase of enhancement. IMPRESSION: No pulmonary embolism or other acute finding in the chest. Dictated by: Jericho Hernandez M.D. on 12/25/2020 at 12:26 Approved by: Jericho Hernandez M.D. on 12/25/2020 at 12:31
[2020-12-25] MEDS: SODIUM CHLORIDE 0.9% 1,000 ML 1000 ML IV (11:55)
== END 2020-12-25 13:08 | disposition home or self-care (01) ==
PROVIDERS: Emergency Provider Emergency Medicine; PCP Family Medicine
DX: R07.9 Chest pain, unspecified (principal); R06.02 Shortness of breath; R42 Dizziness and giddiness
CPT/HCPCS: 36415; 71045; 71275; 80053; 82550; 82553; 83690; 84484; 85007; 85025; 85730; 93005; 96360; 99284

== ENCOUNTER 2021-01-20 01:20 | Emergency (ER) | payer OTHER, MEDICAID, SELFPAY ==
[2021-01-20] VITALS (12 sets, daily range): BP systolic 96–131; BP diastolic 55–83; PULSE 58–90; RESP 12–29; TEMP 37.2; O2SAT 93–98; BMI 39.1
--- NOTE | 2021-01-20 02:08 | ED_ITS ---
HPI - Dizziness General Chief Complaint: Dizziness Stated Complaint: COVID positive, sore throat, fever Time Seen by Provider: 01/20/21 01:26 Source: patient Mode of arrival: Ambulatory Limitations: no limitations History of Present Illness HPI Narrative: 30-year-old male nonsmoker with history of protein C deficiency on Xarelto presents with a near syncopal episode. He states that he was diagnosed with COVID about a week ago and has had trouble smelling, some nasal congestion, sore throat and occasional dry cough. He states that he has been nauseated without vomiting and has some mild, generalized abdominal pain. He has had poor appetite has not been eating and drinking as much as he would normally. This evening he got out of bed and started feeling lightheaded while working his way towards the bathroom. He states he got very sweaty, developed some tunnel vision and felt like he would pass out. He sat on the toilet until things resolve which last about 15 minutes. He denies chest pain or any si gnificant shortness of breath. He has not received his vaccinations for COVID Related Data Previous Rx's Medication Instructions Recorded hydroxyzine HCl 25 mg tablet 25 mg PO BID PRN #60 tab 06/05/20 cyclobenzaprine 10 mg tablet 10 mg PO BEDTIME PRN #60 tab 08/12/20 metoprolol succinate 50 mg 50 mg PO DAILY #90 tab 09/09/20 tablet,extended release 24 hr rivaroxaban 20 mg tablet 20 mg PO QPM #90 tab 10/09/20 mirtazapine 15 mg tablet See Rx Instructions .ROUTE 12/31/20 .COMPLEX #90 tab Allergies Allergy/AdvReac Type Severity Reaction Status Date / Time No Known Drug Allergies Allergy Verified 01/20/21 01:55 Review of Systems Review of Systems Narrative: GENERAL: See HPI HEENT: See HPI RESPIRATORY: See HPI CARDIOVASCULAR: Denies chest pain, palpitations, orthopnea, edema, GASTROINTESTINAL: See HP : Denies dysuria, frequency, incontinence, hematuria, urinary retention. MUSCULOSKELETAL: denies weakness, joint pain, or bony pain SKIN: Denies rash, skin lesions, or other NEUROLOGIC: Denies weakness, headache, numbness, change in speech, confusion, seizures, incoordination. PSYCHIATRIC: No concerning psychosocial issues. 12 point review of systems is negative except for those stated above Patient History Medical History Acne (~2003) Anxiety disorder due to general medical condition Atrial fibrillation (~2017) Atypical chest pain Chicken pox (~1998) Chronic neck and back pain NIÑO (dyspnea on exertion) Eustachian tube dysfunction Excessive daytime sleepiness Fractures (~2002) History of bruxism Insomnia disorder with non-sleep disorder mental comorbidity Loud snoring Low back pain Lumbosacral radiculopathy at L5 Other ear problems Pelvic somatic dysfunction Penile pain Protein C deficiency Pulmonary embolism Rib pain on left side Sacral region somatic dysfunction Somatic dysfunction of rib Somatic dysfunction of thoracolumbar region Tobacco abuse counseling Vertigo (~2016) Surgical History Anesthesia H/O left knee surgery History of torn meniscus of left knee (~12/2010) Family History Father No problems noted. Mother No problems noted. Grandmother Stroke Grandfather Cancer Social History Smoking Status: Former smoker Smoking Status: Former smoker alcohol intake frequency: holidays/special occasions only Substance Use Type: does not use Exam Narrative Exam Narrative: GENERAL: [30] year old patient appears stated age. Well- developed patient, in mild distress. HEAD: Atraumatic. Normocephalic. EYES: Pupils equal round and reactive. Extraocular motions intact. No scleral icterus. No injection or drainage. ENT: Nose without bleeding, purulent drainage. Throat without erythema, tonsillar hypertrophy or exudate. Airway patent. NECK: Trachea midline. Non tender CARDIOVASCULAR: Regular rate and rhythm without murmurs, gallops, or rubs. RESPIRATORY: Clear to auscultation. Breath sounds equal bilaterally. No wheezes, rales, or rhonchi. GASTROINTESTINAL: Abdomen soft, non-tender, nondistended. EXTREMITIES: No edema or joint tenderness. BACK: Nontender without deformity or crepitance. No flank tenderness. NEURO: AOx3. SKIN: No rash or erythema of visible areas Initial Vital Signs Initial Vital Signs: Vital Signs Pulse Rate 87 01/20/21 01:54 Pulse Oximetry 93 01/20/21 01:54 Course Orders Ordered: ED Orders 01/20/21 01:48 EKG-12 Lead Stat 01/20/21 03:07 Complete Blood Count AUTO DIFF Stat Comprehensive Metabolic Panel Stat Magnesium Stat Discontinued Medications Sodium Chloride (Normal Saline 0.9%) 1,000 mls @ 1,000 mls/hr IV BOLUS ONE Stop: 01/20/21 03:05 Last Admin: 01/20/21 02:49 Dose: 1,000 mls/hr Documented by: ABEAMA Sodium Chloride (Normal Saline 0.9%) 1,000 mls @ 1,000 mls/hr IV BOLUS ONE Stop: 01/20/21 04:28 Last Admin: 01/20/21 04:14 Dose: Not Given Documented by: CHINTAN Ketorolac Tromethamine (Ketorolac 30 Mg/Ml Vial) 15 mg IV NOW ONE Stop: 01/20/21 02:07 Last Admin: 01/20/21 02:49 Dose: 15 mg Documented by: NBA Ondansetron HCl (Ondansetron 4 Mg/2 Ml Inj) 4 mg IV NOW ONE Stop: 01/20/21 03:30 Last Admin: 01/20/21 04:14 Dose: Not Given Documented by: CHINTAN Ondansetron HCl (Ondansetron 4 Mg Odt Prepack) 1 bottle MISC SEEINSTR ONE Stop: 01/20/21 04:39 Pantoprazole Sodium (Pantoprazole 40 Mg Vial) 20 mg IV NOW ONE Stop: 01/20/21 03:30 Last Admin: 01/20/21 04:14 Dose: Not Given Documented by: CHINTAN Reevaluation(s) Reevaluation #1: Patient was repositioning himself in order to get the EKG when he had another episode in which his heart rate dipped into the 50s, he became dizzy and sweaty and nauseated. Patient repositioned and orders for IV with fluids and basic labs put in Vital Signs Vital signs: Vital Signs - 8 hr 01/20/21 01:54 01/20/21 01:55 01/20/21 02:00 Temperature 98.9 F Pulse Rate 87 90 79 Respiratory Rate 20 Blood Pressure 131/83 Pulse Oximetry 93 95 94 01/20/21 02:05 01/20/21 02:30 01/20/21 03:00 Temperature Pulse Rate 58 L 86 84 Respiratory Rate Blood Pressure 96/55 L 116/75 Pulse Oximetry 96 94 96 01/20/21 03:15 01/20/21 03:30 01/20/21 03:45 Temperature Pulse Rate 81 77 78 Respiratory Rate 29 H 26 H 21 Blood Pressure 113/76 114/74 116/76 Pulse Oximetry 96 96 97 01/20/21 04:00 01/20/21 04:15 Temperature Pulse Rate 75 72 Respiratory Rate 23 24 Blood Pressure 118/71 118/69 Pulse Oximetry 97 94 MDM - Dizziness Lab Data Result diagrams: 01/20/21 03:07 01/20/21 03:07 Labs: Lab Results 01/20/21 01/20/21 01/20/21 Range/Units 03:07 03:07 03:07 WBC 7.0 (4.5-11.0) X10^3/uL RBC 6.21 H (4.5-5.9) X10^6/uL Hgb 18.0 H (13.5-17.5) g/dL Hct 53.4 H (41-53) % MCV 86.0 (80-100) fL MCH 29.0 (26-34) PG MCHC 33.7 (30-36) % RDW 13.6 (11.6-14.8) % Plt Count 152 (150-400) X10^3/uL Neut % (Auto) 59.2 (50-75) % Lymph % (Auto) 24.2 L (25-40) % [place] % (Auto) 16.1 H (3-14) % Eos % (Auto) 0.1 L (2-4) % Baso % (Auto) 0.4 (0-2) % Neut # (Auto) 4200 (0358-0858) /uL Lymph # (Auto) 1700 (6513-5420) /uL [place] # (Auto) 1100 H (0-900) /uL Eos # (Auto) 0 (0-450) /uL Baso # (Auto) 0 (0-100) /uL Sodium 136 L (137-145) mmol/L Potassium 4.2 (3.4-5.1) mmol/L Chloride 103 (98-107) mmol/L Carbon Dioxide 22 (22-32) mmol/L BUN 16 (9-20) mg/dL Creatinine 1.06 (0.66-1.25) mg/dL Estimated GFR > 60.0 (>60) mL/min BUN/Creatinine Ratio 15.1 (6-22) Glucose 102 H (70-100) mg/dL Calcium 9.3 (8.4-10.2) mg/dL Magnesium 1.9 (1.6-2.3) mg/dL Total Bilirubin 1.0 (0.2-1.3) mg/dL AST 59 (17-59) IU/L ALT 100 H (<50) IU/L Alkaline Phosphatase 48 (38-126) U/L Total Protein 8.0 (6.3-8.2) g/dL Albumin 4.6 (3.5-5.0) g/dL Globulin 3.4 (1.7-4.1) g/dL Albumin/Globulin Ratio 1.4 (1.0-2.8) Lipase Cancelled MDM Narrative Medical decision making narrative: 30-year-old male with near syncope associated with change in position. He has significant improvement after fluids. Labs and repeat physical exam are very reassuring. Return precautions given and questions answered to his apparent satisfaction Discharge Plan Departure Patient Disposition: Home Clinical Impression: Acute dehydration, Orthostatic hypotension Instructions: Orthostatic Hypotension Activity Restrictions/Additional Instructions: *You have been diagnosed with [near syncope secondary to orthostatic hypotension and dehydration] *What to do: *Please continue to take your regular medications as directed. [ ] New medication prescriptions sent to your pharmacy: [ ] [ ] New medication written as a paper prescription [ ] No new medications given [ x] Prepack of Zofran given. *Please be sure to eat and drink even though you aren't feeling well *Return to Emergency Department if you should have any new, worsening or concerning symptoms, such as [significant shortness of breath, persistent vomiting, or other bothersome symptoms Prescriptions: No Action rivaroxaban 20 mg tablet 20 mg PO QPM Qty: 90 RF: 1 mirtazapine 15 mg tablet See Rx Instructions .ROUTE .COMPLEX Qty: 90 RF: 0 hydroxyzine HCl 25 mg tablet 25 mg PO BID PRN (Reason: anxiety) Qty: 60 RF: 0 cyclobenzaprine 10 mg tablet 10 mg PO BEDTIME PRN (Reason: muscle spasm) Qty: 60 RF: 0 metoprolol succinate 50 mg tablet extended release 24 hr 50 mg PO DAILY Qty: 90 RF: 3 Referrals: Gregory Case DO [Primary Care Provider] -
[2021-01-20] MEDS: KETOROLAC 30 MG/ML VIAL 15 MG IV (02:49)
[2021-01-20] MEDS: SODIUM CHLORIDE 0.9% 1,000 ML 1000 ML IV (02:49)
[2021-01-20 03:21] LABS: Add Manual Diff / Slide Review NO; Basophils Absolute Auto 0 /uL (0-100); Basophils Percent Auto 0.4 % (0-2); Eosinophils Absolute Auto 0 /uL (0-450); Eosinophils Percent Auto 0.1 % (2-4); Hematocrit 53.4 % (41-53); Lymphocytes Absolute Auto 1700 /uL (1100-4500); Lymphocytes Percent Auto 24.2 % (25-40); Mean Corpuscular HGB Conc 33.7 % (30-36); Monocytes Absolute Auto 1100 /uL (0-900); Monocytes Percent Auto 16.1 % (3-14); Neutrophils Absolute Auto 4200 /uL (1500-7000); Neutrophils Percent Auto 59.2 % (50-75); Platelet Count 152 X10^3/uL (150-400); Red Blood Cell Count 6.21 X10^6/uL (4.5-5.9); Red Cell Distribution Width 13.6 % (11.6-14.8)
[2021-01-20 03:25] LABS: Alanine Aminotransferase 100 IU/L (<50); Albumin 4.6 g/dL (3.5-5.0); Albumin Globulin Ratio 1.4 (1.0-2.8); Alkaline Phosphatase 48 U/L (38-126); Aspartate Aminotransferase 59 IU/L (17-59); BUN Creatinine Ratio 15.1 (6-22); Blood Urea Nitrogen 16 mg/dL (9-20); Calcium 9.3 mg/dL (8.4-10.2); Carbon Dioxide 22 mmol/L (22-32); Chloride 103 mmol/L (98-107); Estimated Glomerular Filt Rate > 60.0 mL/min (>60); Globulin 3.4 g/dL (1.7-4.1); Glucose 102 mg/dL (70-100); HEMOLYSIS < 15 (0-50); Magnesium 1.9 mg/dL (1.6-2.3); Potassium 4.2 mmol/L (3.4-5.1); Sodium 136 mmol/L (137-145)
[2021-01-20] MEDS: ONDANSETRON 4 MG ODT PREPACK 1 BOTTLE MISC (04:45)
== END 2021-01-20 04:59 | disposition home or self-care (01) ==
PROVIDERS: Emergency Provider Emergency Medicine; PCP Family Medicine
DX: I95.1 Orthostatic hypotension (principal); E86.0 Dehydration; U07.1 COVID-19
CPT/HCPCS: 36415; 80053; 83735; 85025; 93005; 96361; 96374; 99284; J1885

== ENCOUNTER → 2022-08-27 08:49 | Outpatient (CLI) | payer BC, SELFPAY ==
[2022-08-27 11:42] LABS: Add Manual Diff / Slide Review NO; Basophils Absolute Auto 0 /uL (0-100); Basophils Percent Auto 0.6 % (0-2); Eosinophils Absolute Auto 100 /uL (0-450); Eosinophils Percent Auto 1.3 % (2-4); Hematocrit 47.1 % (41-53); Hemoglobin 16.2 g/dL (13.5-17.5); Lymphocytes Absolute Auto 2900 /uL (1100-4500); Mean Corpuscular HGB Conc 34.3 % (30-36); Mean Corpuscular Hemoglobin 28.6 PG (26-34); Mean Corpuscular Volume 83.4 fL (80-100); Monocytes Absolute Auto 600 /uL (0-900); Monocytes Percent Auto 9.3 % (3-14); Neutrophils Absolute Auto 2500 /uL (1500-7000); Neutrophils Percent Auto 40.8 % (50-75); Platelet Count 213 X10^3/uL (150-400); Red Blood Cell Count 5.64 X10^6/uL (4.5-5.9); Red Cell Distribution Width 14.1 % (11.6-14.8); White Blood Cell Count 6.1 X10^3/uL (4.5-11.0)
[2022-08-27 12:04] LABS: Alanine Aminotransferase 71 IU/L (<50); Albumin 4.5 g/dL (3.5-5.0); Albumin Globulin Ratio 1.6 (1.0-2.8); Alkaline Phosphatase 47 U/L (38-126); Aspartate Aminotransferase 38 IU/L (17-59); BUN Creatinine Ratio 15.7 (6-22); Bilirubin Total 1.3 mg/dL (0.2-1.3); Blood Urea Nitrogen 13 mg/dL (9-20); Calcium 9.1 mg/dL (8.4-10.2); Carbon Dioxide 26 mmol/L (22-32); Chloride 104 mmol/L (98-107); Cholesterol 169 mg/dL (140-199); Estimated Glomerular Filt Rate > 60 mL/min (>60); Globulin 2.8 g/dL (1.7-4.1); Glucose 81 mg/dL (70-100); HDL Cholesterol 29 mg/dL (40-60); HEMOLYSIS < 15 (0-50); LDL Cholesterol Calculated 112 mg/dL (<100); Potassium 4.5 mmol/L (3.4-5.1); Sodium 138 mmol/L (137-145); Total Protein 7.3 g/dL (6.3-8.2); Triglycerides 140 mg/dL (35-150)
== END ==
PROVIDERS: PCP Family Medicine; Referring Provider Family Medicine; Visit Provider Family Medicine
DX: I48.0 Paroxysmal atrial fibrillation (principal)
CPT/HCPCS: 36415; 80053; 80061; 85025

== ENCOUNTER → 2022-12-07 15:03 | Outpatient (CLI) | payer BC, OTHER, MEDICAID, SELFPAY | PROVIDERS: PCP Family Medicine; Visit Provider Family Medicine | DX: J02.9 Acute pharyngitis, unspecified (principal) | CPT/HCPCS: 87070 ==

== ENCOUNTER 2023-03-20 13:38 | Emergency (ER) | payer BC, OTHER, MEDICAID, SELFPAY ==
[2023-03-20] VITALS (7 sets, daily range): BP systolic 108–135; BP diastolic 64–77; PULSE 63–74; RESP 16–24; TEMP 36.9; O2SAT 94–98; BMI 33.5
--- NOTE | 2023-03-20 13:48 | DI.RAD.S_ITS ---
PROCEDURE: XR CHEST 1V INDICATIONS: chest pain TECHNIQUE: One view of the chest was acquired. COMPARISON: [facility], CR, XR CHEST 1V, 12/25/2020, 10:05. [facility], CR, XR CHEST 1V, 04/01/2020, 13:26. FINDINGS: Surgical changes and devices: None. Lungs and pleura: Lungs are clear. No pleural effusions or pneumothorax. Mediastinum: Mediastinal contours appear normal. Heart size is normal. Bones and chest wall: No suspicious bony lesions. Overlying soft tissues appear unremarkable. IMPRESSION: No acute cardiopulmonary process. Dictated by: Santiago Peterson M.D. on 03/20/2023 at 14:47 Approved by: Santiago Peterson M.D. on 03/20/2023 at 14:48
[2023-03-20 14:07] LABS: Add Manual Diff / Slide Review NO; Basophils Absolute Auto 0 /uL (0-100); Basophils Percent Auto 0.5 % (0-2); Eosinophils Absolute Auto 100 /uL (0-450); Eosinophils Percent Auto 0.8 % (2-4); Hematocrit 49.3 % (41-53); Hemoglobin 17.1 g/dL (13.5-17.5); Lymphocytes Absolute Auto 2500 /uL (1100-4500); Lymphocytes Percent Auto 25.6 % (25-40); Mean Corpuscular HGB Conc 34.8 % (30-36); Mean Corpuscular Hemoglobin 29.1 PG (26-34); Mean Corpuscular Volume 83.7 fL (80-100); Monocytes Absolute Auto 500 /uL (0-900); Monocytes Percent Auto 4.7 % (3-14); Neutrophils Absolute Auto 6700 /uL (1500-7000); Neutrophils Percent Auto 68.4 % (50-75); Platelet Count 223 X10^3/uL (150-400); Red Blood Cell Count 5.89 X10^6/uL (4.5-5.9); Red Cell Distribution Width 14.2 % (11.6-14.8); White Blood Cell Count 9.7 X10^3/uL (4.5-11.0)
[2023-03-20 14:13] LABS: INR 1.3 (0.9-1.3); Prothrombin Time 14.9 SECONDS (10.1-12.7)
[2023-03-20 14:15] LABS: PTT Partial Thromboplastin Tim 36 SECONDS (26-36)
[2023-03-20 14:17] LABS: Alanine Aminotransferase 56 IU/L (<50); Albumin 4.8 g/dL (3.5-5.0); Albumin Globulin Ratio 1.4 (1.0-2.8); Alkaline Phosphatase 53 U/L (38-126); Aspartate Aminotransferase 35 IU/L (17-59); BUN Creatinine Ratio 12.1 (6-22); Bilirubin Total 1.5 mg/dL (0.2-1.3); Blood Urea Nitrogen 11 mg/dL (9-20); Carbon Dioxide 23 mmol/L (22-32); Chloride 104 mmol/L (98-107); Creatine Kinase 103 U/L (55-170); Estimated Glomerular Filt Rate > 60 mL/min (>60); Globulin 3.4 g/dL (1.7-4.1); Glucose 129 mg/dL (70-100); HEMOLYSIS < 15 (0-50); Lipase 96 U/L (23-300); Magnesium 1.8 mg/dL (1.6-2.3); Potassium 3.8 mmol/L (3.4-5.1); Sodium 137 mmol/L (137-145); Total Protein 8.2 g/dL (6.3-8.2)
[2023-03-20 14:28] LABS: Troponin I < 0.012 ng/mL (0.01-0.034)
--- NOTE | 2023-03-20 14:47 | ED.CHESTPAIN ---
HPI - Chest Pain General Chief Complaint: Chest Pain Stated Complaint: chest pressure, throbbing on neck Time Seen by Provider: 03/20/23 14:17 Source: patient Mode of arrival: Ambulatory Limitations: no limitations History of Present Illness HPI narrative: 32-year-old male with history of PE on Xarelto, history of atrial fibrillation on metoprolol presents for left-sided chest pain that he describes as an aching sensation. Intermittent, patient can not identify what makes it come or go. Also endorsing sensation palpitations where his chest will ?thump?. Has been compliant with Xarelto, denies any missed doses. No medications taken prior to arrival. Related Data Previous Rx's Medication Instructions Recorded cephalexin 500 mg capsule 500 mg PO BID #10 caps 12/07/22 metoprolol succinate 50 mg See Rx Instructions .Route 12/15/22 tablet,extended release 24 hr .COMPLEX #90 tabs rivaroxaban 20 mg tablet (Xarelto) 20 mg PO DAILY #90 tabs 02/23/23 Allergies Allergy/AdvReac Type Severity Reaction Status Date / Time No Known Drug Allergies Allergy Verified 10/08/22 09:49 Review of Systems Review of Systems Narrative: CONSTITUTIONAL- Denies: fever, chills, fatigue HEENT- Denies: sore throat, nosebleed, vision changes RESPIRATORY- Denies: shortness of breath, cough, wheezing CARDIAC-reports: Chest pain, palpitations Denies: edema, orthopnea GI- Denies: abdominal pain, nausea, vomiting, constipation, diarrhea - Denies: frequency, dysuria, hematuria, flank pain MSK- Denies: extremity pain, extremity swelling, joint pain, joint swelling SKIN- Denies: rash, itching, burn, swelling NEUROLOGICAL- Denies: headache, numbness, weakness, dizziness PSYCHIATRIC- Denies: anxiety, depression, suicidal ideation, homicidal ideation Patient History Medical History (Updated 03/20/23 @ 15:12 by Kacey Dickens MD) Sore throat Sinusitis, acute Chronic anticoagulation Mild hyperlipidemia Sacral region somatic dysfunction Pelvic somatic dysfunction Lumbosacral radiculopathy at L5 History of bruxism Insomnia disorder with non-sleep disorder mental comorbidity NIÑO (dyspnea on exertion) Protein C deficiency Anxiety disorder due to general medical condition Pulmonary embolism Excessive daytime sleepiness Loud snoring Penile pain Tobacco abuse counseling Eustachian tube dysfunction Other ear problems Atypical chest pain Somatic dysfunction of rib Somatic dysfunction of thoracolumbar region Low back pain Rib pain on left side Acne (~2003) Fractures (~2002) Chicken pox (~1998) Vertigo (~2016) Chronic neck and back pain Atrial fibrillation (~2017) Surgical History Anesthesia History of torn meniscus of left knee (~12/2010) H/O left knee surgery Family History Father No problems noted. Mother No problems noted. Grandmother Stroke Grandfather Cancer Social History Smoking Status: Former smoker Smoking Status: Former smoker alcohol intake frequency: holidays/special occasions only Substance Use Type: does not use Exam Initial Vital Signs Initial Vital Signs: Vital Signs Temperature 98.4 F 03/20/23 13:45 Pulse Rate 74 03/20/23 13:45 Respiratory Rate 16 03/20/23 13:45 Blood Pressure 135/77 03/20/23 13:45 Pulse Oximetry 98 03/20/23 13:45 Oxygen Delivery Method Room Air 03/20/23 13:45 Const: Awake, alert, no acute distress, nontoxic appearing Eyes: PERRL, EOMI, conjunctiva normal ENT: Atraumatic, dentition normal, mucous membranes moist Cardiac: regular rate, regular rhythm RESP: unlabored, clear bilaterally, no wheezing GI: Atraumatic, soft, nontender, nondistended, no rebound, no guarding MSK: Atraumatic, full range of motion, pulses equal Skin: Warm, Dry, intact, no rashes Neuro: AO x3, CN II-XII grossly intact, moves all extremities Psych: affect normal, mood normal, not suicidal, not homicidal Course Course Course Narrative: Well-appearing patient with intermittent chest pains. Does have a history of protein C deficiency with PE, however he has been compliant with his anticoagulants. EKG reviewed, no ischemic findings. Placed on youth nutritional monitor, labs and imaging will be obtained. Orders Ordered: Discontinued Medications Aspirin (Aspirin 81 Mg Chew Tab) 324 mg PO NOW ONE Stop: 03/20/23 13:49 Reevaluation(s) Reevaluation #1: D-dimer is negative, chest x-ray reviewed, unremarkable. Patient has been observed on youth nutritional monitor for several hours and no concerning events have been captured, vital signs have been entirely unremarkable. In addition thyroid panel is normal. Patient informed of all lab and imaging findings, counseled to follow up with Cardiology. ED return precautions discussed at bedside. Patient expressed understanding of the plan and is in agreement at this time. All questions answered at the time of discharge. Vital Signs Vital signs: Vital Signs - 8 hr 03/20/23 13:45 03/20/23 14:16 03/20/23 14:21 Temperature 98.4 F Pulse Rate 74 63 66 Respiratory Rate 16 22 24 Blood Pressure 135/77 Pulse Oximetry 98 94 95 Oxygen Delivery Method Room Air 03/20/23 14:21 03/20/23 14:30 03/20/23 14:30 Temperature Pulse Rate 67 Respiratory Rate 23 Blood Pressure 117/73 114/69 Pulse Oximetry 94 Oxygen Delivery Method 03/20/23 15:00 03/20/23 15:00 Temperature Pulse Rate 67 Respiratory Rate Blood Pressure 117/71 Pulse Oximetry 95 Oxygen Delivery Method Room Air MDM - Chest Pain Differential Diagnosis Differential diagnosis: Likely pneumothorax, atypical chest pain and costochondritis Lab Data 03/20/23 13:55 03/20/23 13:55 Labs: Lab Results 03/20/23 Range/Units 13:55 WBC 9.7 (4.5-11.0) X10^3/uL RBC 5.89 (4.5-5.9) X10^6/uL Hgb 17.1 (13.5-17.5) g/dL Hct 49.3 (41-53) % MCV 83.7 (80-100) fL MCH 29.1 (26-34) PG MCHC 34.8 (30-36) % RDW 14.2 (11.6-14.8) % Plt Count 223 (150-400) X10^3/uL Neut % (Auto) 68.4 (50-75) % Lymph % (Auto) 25.6 (25-40) % [place] % (Auto) 4.7 (3-14) % Eos % (Auto) 0.8 L (2-4) % Baso % (Auto) 0.5 (0-2) % Neut # (Auto) 6700 (6493-8949) /uL Lymph # (Auto) 2500 (1962-0211) /uL [place] # (Auto) 500 (0-900) /uL Eos # (Auto) 100 (0-450) /uL Baso # (Auto) 0 (0-100) /uL PT 14.9 H (10.1-12.7) SECONDS INR 1.3 (0.9-1.3) APTT 36 (26-36) SECONDS D-Dimer < 215 (<500) ng/ml Sodium 137 (137-145) mmol/L Potassium 3.8 (3.4-5.1) mmol/L Chloride 104 (98-107) mmol/L Carbon Dioxide 23 (22-32) mmol/L BUN 11 (9-20) mg/dL Creatinine 0.91 (0.66-1.25) mg/dL Estimated GFR > 60 (>60) mL/min BUN/Creatinine Ratio 12.1 (6-22) Glucose 129 H (70-100) mg/dL Calcium 10.0 (8.4-10.2) mg/dL Magnesium 1.8 (1.6-2.3) mg/dL Total Bilirubin 1.5 H (0.2-1.3) mg/dL AST 35 (17-59) IU/L ALT 56 H (<50) IU/L Alkaline Phosphatase 53 (38-126) U/L Total Creatine Kinase 103 (55-170) U/L Troponin I < 0.012 (0.01-0.034) ng/mL Total Protein 8.2 (6.3-8.2) g/dL Albumin 4.8 (3.5-5.0) g/dL Globulin 3.4 (1.7-4.1) g/dL Albumin/Globulin Ratio 1.4 (1.0-2.8) Lipase 96 (23-300) U/L TSH 2.07 (0.47-4.68) uIU/mL Discharge Plan Departure Patient Disposition: Home Clinical Impression: Chest pain, Heart palpitations Instructions: DI for Atypical Chest Pain, DI for Arrhythmias Prescriptions: No Action metoprolol succinate 50 mg tablet extended release 24 hr See Rx Instructions .ROUTE .COMPLEX Qty: 90 3RF Dose Instruction: TAKE ONE TABLET BY MOUTH ONE TIME DAILY Rx Instructions: TAKE ONE TABLET BY MOUTH ONE TIME DAILY Xarelto 20 mg tablet 20 mg PO DAILY Qty: 90 3RF Rx Instructions: TAKE ONE TABLET BY MOUTH ONE TIME DAILY WITH EVENING MEAL cephalexin 500 mg capsule 500 mg PO BID Qty: 10 0RF Referrals: Chandra Case DO [Primary Care Provider] - Stand Alone Forms: Patient Portal/API
[2023-03-20 15:01] LABS: D Dimer < 215 ng/ml (<500)
[2023-03-20 15:56] LABS: Thyroid Stimulating Hormone 2.07 uIU/mL (0.47-4.68)
== END 2023-03-20 16:28 | disposition home or self-care (01) ==
PROVIDERS: Emergency Provider Emergency Medicine; PCP Family Medicine
DX: R07.9 Chest pain, unspecified (principal); R00.2 Palpitations; Z79.01 Long term (current) use of anticoagulants
CPT/HCPCS: 36415; 71045; 80053; 82550; 83690; 83735; 84443; 84484; 85025; 85379; 85610; 85730; 93005; 99283; 99284

== ENCOUNTER → 2023-09-02 10:39 | Outpatient (CLI) | payer OTHER, SELFPAY ==
[2023-09-02 11:03] LABS: Add Manual Diff / Slide Review NO; Basophils Absolute Auto 100 /uL (0-100); Basophils Percent Auto 0.8 % (0-2); Eosinophils Absolute Auto 100 /uL (0-450); Eosinophils Percent Auto 1.2 % (2-4); Hematocrit 48.3 % (41-53); Hemoglobin 16.8 g/dL (13.5-17.5); Lymphocytes Absolute Auto 3500 /uL (1100-4500); Lymphocytes Percent Auto 42.9 % (25-40); Mean Corpuscular HGB Conc 34.8 % (30-36); Mean Corpuscular Hemoglobin 28.4 PG (26-34); Mean Corpuscular Volume 81.8 fL (80-100); Monocytes Absolute Auto 600 /uL (0-900); Monocytes Percent Auto 7.5 % (3-14); Neutrophils Absolute Auto 3800 /uL (1500-7000); Neutrophils Percent Auto 47.6 % (50-75); Platelet Count 199 X10^3/uL (150-400); Red Blood Cell Count 5.91 X10^6/uL (4.5-5.9); Red Cell Distribution Width 14.4 % (11.6-14.8); White Blood Cell Count 8.1 X10^3/uL (4.5-11.0)
[2023-09-02 11:13] LABS: Hemoglobin A1C% w Est Avg Glu 5.2 % (4.0-6.0)
[2023-09-02 11:38] LABS: INR 1.4 (0.9-1.3); Prothrombin Time 15.7 SECONDS (9.4-12.5)
[2023-09-02 11:46] LABS: Alanine Aminotransferase 46 IU/L (<50); Albumin 4.6 g/dL (3.5-5.0); Albumin Globulin Ratio 1.4 (1.0-2.8); Alkaline Phosphatase 49 U/L (38-126); Aspartate Aminotransferase 34 IU/L (17-59); Bilirubin Total 1.1 mg/dL (0.2-1.3); Blood Urea Nitrogen 16 mg/dL (9-20); Calcium 9.7 mg/dL (8.4-10.2); Carbon Dioxide 25 mmol/L (22-32); Chloride 107 mmol/L (98-107); Cholesterol 161 mg/dL (140-199); Estimated Glomerular Filt Rate > 60 mL/min (>60); Globulin 3.2 g/dL (1.7-4.1); Glucose 82 mg/dL (70-100); HDL Cholesterol 36 mg/dL (40-60); HEMOLYSIS < 15 (0-50); LDL Cholesterol Calculated 90 mg/dL (<100); Potassium 4.8 mmol/L (3.4-5.1); Sodium 141 mmol/L (137-145); Total Protein 7.8 g/dL (6.3-8.2); Triglycerides 173 mg/dL (35-150)
== END ==
LOC: LAB 10:39
PROVIDERS: PCP Family Medicine; Referring Provider Family Medicine; Visit Provider Family Medicine
DX: E78.5 Hyperlipidemia, unspecified (principal); I48.91 Unspecified atrial fibrillation; Z79.01 Long term (current) use of anticoagulants; R73.01 Impaired fasting glucose
CPT/HCPCS: 36415; 80053; 80061; 83036; 85025; 85610

== ENCOUNTER → 2024-01-17 19:13 | Outpatient (CLI) | payer OTHER, SELFPAY ==
--- NOTE | 2024-01-17 19:14 | DI.RAD.S_ITS ---
PROCEDURE: XR FOOT LT MIN 3V INDICATIONS: Left foot/great toe pain TECHNIQUE: 3 views of the foot were acquired. COMPARISON: None. FINDINGS: Bones: No fractures or dislocations. No suspicious bony lesions. Soft tissues: No tibiotalar joint effusion. Achilles tendon appears normal. IMPRESSION: No acute bony abnormality. Dictated by: Chandler Jenkins M.D. on 01/17/2024 at 19:54 Approved by: Chandler Jenkins M.D. on 01/17/2024 at 19:54
== END ==
PROVIDERS: PCP Family Medicine; Referring Provider Physician Assistant Surgical; Visit Provider Physician Assistant Surgical
DX: M79.675 Pain in left toe(s) (principal); M79.672 Pain in left foot
CPT/HCPCS: 73630

== ENCOUNTER → 2024-02-16 08:00 | Outpatient (CLI) | payer OTHER, SELFPAY ==
--- NOTE | 2024-02-16 | DI.ECHO.S_ITS ---
[facility] : : [address] : : [facility] : : [place], : : [place] [address] : : Phone: [phone] Echocardiogram Report + + :Name: TYRESE CAMARILLO Study Date: 02/16/2024 Height: 77 in : :[facility] ReadingLocation: Weight: 280 lb : : Gender: Male BSA: 2.6 m2 : :: 1990 Age: 33 yrs BP: 134/84 mmHg: :Reason For Study: PALPITATIONS : :Ordering Physician: YUNIER, : :ROSALINE Perez Performed By: Jericho Montez : :Referring: ROSALINE ESCOBAR : + + Interpretation Summary The ejection fraction is estimated to be 60-65%. Diastolic parameters suggest probable normal left ventricular diastolic function and normal filling pressures. The right ventricle is normal in size and function. No significant valvular abnormalities. Pulmonary artery pressures cannot be estimated because of the lack of a measurable TR jet velocity but the IVC suggests a CVP of around 3 mmHg. The aortic root is mildly dilated, 3.9 cm. Procedure: A two-dimensional transthoracic echocardiogram with color flow and Doppler was performed. The study quality was technically adequate. Comparison is made with the echocardiogram of 05/21/2019. The patient was in sinus rhythm with heart rates between 55-65 bpm during the exam. Left Ventricle: The left ventricle is normal in size and wall thickness. The ejection fraction is estimated to be 60-65%. Diastolic parameters suggest probable normal left ventricular diastolic function and normal filling pressures. Right Ventricle: The right ventricle is normal in size and function. Atria: The left atrial size is normal. Right atrial size is normal. The interatrial septum grossly appears intact with no obvious evidence for an atrial septal defect. Mitral Valve: The mitral valve is normal. There is no mitral valve stenosis. There is no mitral regurgitation noted. Aortic Valve: The aortic valve is trileaflet. There is no aortic valve stenosis. No aortic regurgitation is present. Tricuspid Valve: The tricuspid valve is normal. There is no tricuspid stenosis. No tricuspid regurgitation. Pulmonary artery pressures cannot be estimated because of the lack of a measurable TR jet velocity but the IVC suggests a CVP of around 3 mmHg. Pulmonic Valve: The pulmonic valve is not well visualized. There is no pulmonic valvular stenosis. There is no pulmonic valvular regurgitation. Great Vessels: The aortic root is mildly dilated. The dimensions of the ascending aorta are normal. The IVC is of normal diameter and collapses greater than 50% with a sniff. This suggests a low right atrial pressure of 3 mm Hg. Pericardium/ Pleura There has been no significant change since the previous study. There is no pleural effusion. MMode/2D Measurements & Calculations LVIDd: 5.6 cm LVOT diam: 2.6 cm LVIDs: 3.5 cm Ao root diam: 3.9 cm IVSd: 1.2 cm asc Aorta Diam: 3.5 cm LVPWd: 1.0 cm LV jeffrey. diameter/BSA (cm/m^2): 2.2 LV sys. diameter/BSA (cm/m^2): 1.3 FS: 37.8 % LA A2 area: 22.6 cm2 RA long axis: 5.4 cm LA A4 area: 22.2 cm2 RA area: 18.0 cm2 LA length (vol): 5.7 cm RA vol: 50.8 ml LA vol: 75.0 ml RA : 19.7 ml/m2 LA vol index: 29.1 ml/m2 RVD1 (basal): 3.4 cm IVC diam: 2.0 cm RVD2 (mid): 3.5 cm TAPSE: 2.1 cm Doppler Measurements & Calculations Ao V2 max: 110.7 cm/sec LVOT Max Sudarshan: 85.3 cm/sec Ao V2 mean: 80.1 cm/sec LV V1 max P.9 mmHg Ao V2 VTI: 23.2 cm LV V1 VTI: 19.7 cm Ao max P.9 mmHg Ao mean P.8 mmHg NY(I,D): 4.7 cm2 MV E max sudarshan: 57.9 cm/sec NY(V,D): 4.2 cm2 MV A max sudarshan: 38.6 cm/sec NY indexed to BSA (cm^2/m^2): 1.8 MV E/A: 1.5 sev ratio: 0.85 Med Peak E' Sudarshan: 8.5 cm/sec E/E' med: 6.9 Lat Peak E' Sudarshan: 14.3 cm/sec E/E' lat: 4.1 E/e' average: 5.5 MV dec time: 0.19 sec PA V2 max: 89.6 cm/sec PA V2 mean: 65.3 cm/sec PA mean P.9 mmHg PA pr(Accel): 46.5 mmHg SV(LVOT): 107.8 ml Reading Physician:09:36 AM
--- NOTE | 2024-02-16 14:59 | DI.NM.S_ITS ---
PROCEDURE: NM EXERCISE TREADMILL NON NUC COMPARISON: None. INDICATIONS: PALPITATIONS FINDINGS: Total exercise time was 10 minutes 46 seconds. Test was terminated secondary to fatigue. Maximal heart rate obtained is 169 bpm which is greater than 85% of maximum predicted heart rate. Maximum blood pressure was 190/[place] [address]. HUAN of +21%. 11.5 METS. No ischemic changes noted. No chest pains voiced. No arrhythmias. Normal heart rate with hypertensive blood pressure response to exercise. IMPRESSION: 1. Negative exercise treadmill stress test in terms of ischemia. 2. Below average exercise tolerance. 3. Hypertensive blood pressure response to exercise. Dictated by: Manuel Lucio M.D. on 02/16/2024 at 16:09 Approved by: Manuel Lucio M.D. on 02/16/2024 at 16:12
== END ==
PROVIDERS: PCP Family Medicine; Referring Provider Internal Medicine Cardiovascular Disease; Visit Provider Internal Medicine Cardiovascular Disease
DX: R00.2 Palpitations (principal); I77.89 Other specified disorders of arteries and arterioles; R03.0 Elevated blood-pressure reading, without diagnosis of hypertension
CPT/HCPCS: 93017; 93306

== ENCOUNTER → 2025-04-08 15:12 | Outpatient (CLI) | payer SELFPAY ==
[2025-04-08 15:33] LABS: Semen Sperm Prescence Post-Vas Absent (ABSENT)
== END ==
PROVIDERS: PCP Family Medicine; Referring Provider Family Medicine; Visit Provider Family Medicine
DX: Z98.52 Vasectomy status (principal)
CPT/HCPCS: 89321

== ENCOUNTER → 2025-04-29 07:24 | Outpatient (CLI) | payer OTHER, SELFPAY ==
[2025-04-29 08:33] LABS: Hematocrit 53.2 % (41-53); Hemoglobin 18.6 g/dL (13.5-17.5); Mean Corpuscular HGB Conc 34.9 % (30-36); Mean Corpuscular Hemoglobin 29.3 PG (26-34); Mean Corpuscular Volume 84.0 fL (80-100); Platelet Count 220 X10^3/uL (150-400)
[2025-04-29 08:43] LABS: Add Manual Diff / Slide Review YES
[2025-04-29 08:50] LABS: Alanine Aminotransferase 55 IU/L (<50); Albumin 5.0 g/dL (3.5-5.0); Albumin Globulin Ratio 1.6 (1.0-2.8); Alkaline Phosphatase 53 U/L (38-126); Blood Urea Nitrogen 17 mg/dL (9-20); Calcium 9.9 mg/dL (8.4-10.2); Carbon Dioxide 24 mmol/L (22-32); Chloride 103 mmol/L (98-107); Cholesterol 194 mg/dL (140-199); Estimated Glomerular Filt Rate > 60 mL/min (>60); Globulin 3.1 g/dL (1.7-4.1); Glucose 85 mg/dL (70-99); HDL Cholesterol 37 mg/dL (40-60); HEMOLYSIS < 15 (0-50); Potassium 4.8 mmol/L (3.4-5.1); Sodium 140 mmol/L (137-145); Total Protein 8.1 g/dL (6.3-8.2); Triglycerides 210 mg/dL (35-150)
[2025-04-29 08:51] LABS: Band Neutrophils Percent 2.0 % (3-7); Eosinophils Percent Manual 1.0 % (2-4); Lymphocytes Percent Manual 26.0 % (25-45); Monocytes Percent Manual 5.0 % (2-11); Neutrophils Absolute Manual 5984 /uL (3000-5900); RBC Morphology Normal Morphology; Segmented Neutrophils Percent 66.0 % (38-70); Total Cells Counted 100
[2025-04-29 09:06] LABS: Vitamin D 25 Hydroxy (D3) 19.7 ng/mL (30.0-100.0)
[2025-04-29 09:23] LABS: TSH w/ Reflex to FT4 1.13 uIU/mL (0.47-4.68)
[2025-04-29 09:42] LABS: Vitamin B12 557 pg/mL (239-931)
== END ==
PROVIDERS: PCP Family Medicine; Referring Provider Family Medicine; Visit Provider Family Medicine
DX: I48.0 Paroxysmal atrial fibrillation (principal); F06.4 Anxiety disorder due to known physiological condition; E78.5 Hyperlipidemia, unspecified; F43.9 Reaction to severe stress, unspecified
CPT/HCPCS: 36415; 80053; 80061; 82306; 82607; 84443; 85007; 85025

== ENCOUNTER 2025-05-09 12:43 | Emergency (ER) | payer OTHER, SELFPAY ==
[2025-05-09 13:02] VITALS: BP 135/69; PULSE 54; RESP 16; TEMP 36.5; O2SAT 98; BMI 33.5
== END 2025-05-09 16:07 | disposition left against medical advice (07) ==
PROVIDERS: Emergency Provider Emergency Medicine; PCP Family Medicine
DX: Z53.21 Procedure and treatment not carried out due to patient leaving prior to being seen by health care provider (principal)
CPT/HCPCS: 99281